=== PATIENT | female | born 1995 | race Caucasian/White ===

== ENCOUNTER 2019-01-21 20:54 | Emergency (ER) | payer MEDICAID, SELFPAY ==
[2019-01-21 20:55] VITALS: BP 156/85; PULSE 87; RESP 16; TEMP 36.7; O2SAT 100; BMI 40.4
[2019-01-21 21:01] VITALS: BP 111/71; PULSE 82; RESP 22; O2SAT 98
--- NOTE | 2019-01-21 21:27 | US_ITS ---
STUDY: SECOND AND THIRD TRIMESTER OBSTETRICAL ULTRASOUND - LIMITED REASON FOR EXAM: Female, 23 years old. Cramping PRIOR ULTRASOUND: None. TECHNIQUE: Transabdominal and Transvaginal TECHNICAL QUALITY: Adequate. FINDINGS: There is a single intrauterine fetus. The fetus is in a transverse lie with the head on the maternal right side. There is demonstrated cardiac activity with a heart rate of 144 bpm. There is a normal amniotic fluid volume. The largest amniotic fluid pocket measures 6.5 cm. Amniotic fluid index was not measured. The placenta is posterior . The cervix measures 4.2 cm in length. BIOMETRY: BPD: 3.9 cm: 17 weeks, 6 days HC: 14.6 cm: 17 weeks, 6 days AC: 12.8 cm: 18 weeks, 3 days FL: 2.5 cm: 17 weeks, 4 days Age by LMP: 17 weeks, 3 days. GUILLERMO by LMP: 06/28/2019. age by current US: 18 weeks, 0 days. GUILLERMO by current US: 06/24/2019. Estimated weight: 217 grams, +/- 32 grams, 77 percentile. Please note this is not a dedicated anatomy ultrasound. Recommend correlation with dedicated anatomy ultrasound between 18 and 20 weeks gestational age. US/OB Limited With Biometrics IMPRESSION: Single live intrauterine with a computed gestational age of 18 weeks and 0 days. Electronically Signed: Vadim Hester, at 23:29 EDT Tel , Service support ,
[2019-01-21 21:56] LABS: Absolute Lymphocyte Count 3.32 X10^3/ul (0.83-4.51); Absolute Neutrophil Count 7.2 X10^3/uL (2.0-7.7); Basophil# 0.02 X10^3/uL; Basophil% 0.2 % (0-1); Eosinophils% 0.9 % (0-5); Hematocrit 34.7 % (37-47); Hemoglobin 11.7 g/dl (12.0-15.0); Lymphocyte # 3.32 X10^3/ul (4.0); Lymphocyte % 29.2 % (19-41); Mean Corp Hgb Conc 33.7 g/gl (32-36); Mean Corpuscular Hgb 29.3 pg (27.0-32.0); Mean Platelet Vol. 11.5 fl (6.2-12.0); Monocyte# 0.71 X10^3/uL; Monocyte% 6.2 % (0-10); Neutrophil # 7.18 X10^3/uL (2.7-7.7); Neutrophil % 63.1 % (47-70); Platelet Count 231 K/mm3 (150-450); RBC Distribution Width CV 13.5 % (11.6-14.6); RBC Distribution Width SD 41.9 fl (35.1-43.9); Red Blood Count 3.99 M/mm3 (4.2-5.4); White Blood Count 11.4 K/mm3 (4.4-11.0)
[2019-01-21 21:57] LABS: POSITIVE COUNT NO; POSITIVE DIFFERENTIAL NO; POSITIVE MORPHOLOGY NO
[2019-01-21 21:59] LABS: ALB/GLOB Ratio 0.8 RATIO (0.9-2.4); AST(SGOT) 29 U/L (15-37); Alanine Aminotransfer ALT/SGPT 37 U/L (13-56); Albumin, Serum 3.2 g/dL (3.2-5.0); Alkaline Phosphatase 60 U/L (45-117); Anion Gap 6 (5-15); BUN 4 mg/dL (7-18); BUN/Creat Ratio 8.1 RATIO (10-20); Calcium,Total 9.2 mg/dL (8.5-10.1); Chloride 109 mmol/L (98-107); Creatinine, Serum 0.49 mg/dL (0.55-1.02); EST Glomerular Filtration Rate 164 mL/min (>60); Est Glom Filt Rate - Afr Amer 198 mL/min (>60); Estimated Creatinine Clearance 140.02 ml/min; Glucose 86 mg/dL (74-106); Potassium 3.5 mmol/L (3.5-5.1); Protein, Total 7.2 g/dL (6.4-8.2); Sodium Level 139 mmol/L (136-145)
--- NOTE | 2019-01-21 22:37 | ED.DCSUM_ITS ---
- ER Visit Summary Date of Service: 01/21/19 Chief Complaint: Nausea vomiting History of Present Illness: The patient is a 23 F who is approximately 18 weeks . She states that tonight she was swimming outside for about an hour. She got out of the water she felt dizzy. She went to the bathroom had nausea vomiting. After that she continued to feel dizzy and nauseous she went to the bedroom. She states that she urinated on herself but did not know she was peeing. She felt like passing out. She states now she feels fine other than my head feels heavy. G4, P2 Ab1. Patient of Dr. Garces. She smokes but does not drink any alcohol. She does note some lower abdominal cramping at the time that she was peeing. She does not know if there is any blood or leakage of fluid. Physical Examination: Afebrile vital signs are stable Gen: Well-nourished well-developed obese Head: Normocephalic atraumatic Eyes: Perrl EOMI ENT: TMs clear no rhinorrhea moist mucous membranes Neck: Supple no lymphadenopathy no JVD nontender CVS: Regular rate rhythm no murmurs normal S1-S2 Respiratory: No distress clear to auscultation bilaterally chest nontender Abdomen: Soft nontender nondistended normal bowel sounds no masses Back: Nontender Extremity: Nontender no edema Skin: Normal color no rash Neuro: alert orientated ?3 CN II-XII intact normal strength sensation reflexes gait cerebellar Psych: Normal affect normal mood Test Results: White count 11.4 hemoglobin 11.7. BMP is normal. UA negative. Ultrasound of the fetus showed a single live intrauterine with gestational age of about 18 weeks. Normal amniotic fluid and heart rate. Emergency Department Course and Treatment: Reassessment the patient feels back to herself. I suspect that she had more of a vasovagal episode. She will follo w-up with [facility] as scheduled. Return if worsening or concerns Impression: 1. Second trimester 2. Dizziness 3. Vasovagal near syncope This note was generated with [employer] software. It may contain incorrect words, spelling, and punctuation that were not noted in review of the chart prior to signing ED Disposition - Plan for ED Patient: Disposition: Home or Assisted Living Instructions: NEAR SYNCOPE, Vasovagal Referrals: Wolfgang Martinez MD [STAFF PHYSICIAN] -
[2019-01-21 23:25] LABS: Mucous, Urine 0 SEEN /hpf (<or=2+)
[2019-01-21 23:52] VITALS: BP 118/60; PULSE 75; RESP 18; O2SAT 96
[2019-01-22] LABS: Color, Urine Yellow (Yellow); Glucose, Dipstick Normal (Normal); Ketone-Dipstick 15 mg/dl (Negative); Leukocyte Esterase-Dipstick 25 /ul (Negative); Nitrite-Dipstick Negative (Negative); Occult Blood-Urine 50 /ul (Negative); Protein-Dipstick 15 mg/dl (Negative); Specific Gravity, Urine 1.025 (1.002-1.030); Urine Bilirubin Dipstick Negative (Negative); Urine Clarity Sl. Cloudy (Clear); Urine Urobilinogen Normal (Normal)
[2019-01-22 00:13] LABS: Fine Granular Cast- Urine 0-5 SEEN /lpf (0-5); Hyaline Cast 0-5 SEEN /lpf (0-5)
[2019-01-22 00:14] LABS: Amorphous Sediment 1+; Bacteria RARE /hpf (None Seen); Red Blood Cells-Urine 0-5 SEEN /hpf (0-5); Squamous Epithelial Cells - UA 5-10 SEEN /hpf (5-10); White Blood Cells 0-5 SEEN /hpf (0-5)
[2019-01-22 00:41] VITALS: BP 105/60; PULSE 67; RESP 18; O2SAT 98
== END 2019-01-22 00:41 | disposition home or self-care (01) ==
PROVIDERS: Emergency Provider Emergency Medicine; Family Provider Family Medicine; PCP Family Medicine
DX: O99.89 Other specified diseases and conditions complicating pregnancy, childbirth and the puerperium (principal); R42 Dizziness and giddiness; R55 Syncope and collapse; O99.332 Smoking (tobacco) complicating pregnancy, second trimester; F17.200 Nicotine dependence, unspecified, uncomplicated; O99.212 Obesity complicating pregnancy, second trimester; E66.9 Obesity, unspecified; Z3A.18 18 weeks gestation of pregnancy
CPT/HCPCS: 76816; 80053; 81001; 85025; 99283; A4216

== ENCOUNTER → 2019-02-13 16:12 | Outpatient (CLI) | payer MEDICAID, SELFPAY ==
[2019-01-21 20:55] VITALS: BMI 40.4
== END ==
PROVIDERS: Visit Provider Obstetrics & Gynecology
DX: O23.42 Unspecified infection of urinary tract in pregnancy, second trimester (principal); Z3A.00 Weeks of gestation of pregnancy not specified
CPT/HCPCS: 87077; 87086; 87088; 87186

== ENCOUNTER → 2019-04-19 14:49 | Outpatient (CLI) | payer MEDICAID, SELFPAY ==
[2019-04-19 15:46] LABS: Hematocrit 34.9 % (37-47); Hemoglobin 11.4 g/dL (12.0-15.0); Mean Corp Hgb Conc 32.7 g/dL (32-36); Mean Corpuscular Hgb 28.8 pg (27.0-32.0); Mean Corpuscular Volume 88.1 fL (81-99); Mean Platelet Vol. 11.2 fl (6.2-12.0); Platelet Count 286 K/mm3 (150-450); RBC Distribution Width CV 13.2 % (11.6-14.6); RBC Distribution Width SD 42.7 fl (35.1-43.9); Red Blood Count 3.96 M/mm3 (4.2-5.4); White Blood Count 14.7 K/mm3 (4.4-11.0)
[2019-04-19 16:05] LABS: Free T3 2.6 pg/mL (2.18-3.98); Glucose Challenge Gest 1H 50g 136 mg/dL (70-140); T4 Free Direct 0.84 ng/dL (0.76-1.46); Thyroid Stim Hormone (TSH) 0.95 uIU/mL (0.358-3.74)
== END ==
PROVIDERS: Visit Provider Obstetrics & Gynecology
DX: Z34.83 Encounter for supervision of other normal pregnancy, third trimester (principal)
CPT/HCPCS: 36415; 82950; 84439; 84443; 84481; 85027

== ENCOUNTER 2019-05-19 10:04 | Emergency (ER) | payer MEDICAID, SELFPAY ==
[2019-05-19] VITALS (9 sets, daily range): BP systolic 118–125; BP diastolic 77–80; PULSE 16–111; RESP 16–17; TEMP 36.6–36.7; O2SAT 96; BMI 40.1
--- NOTE | 2019-05-19 10:27 | ED.VIS.GEN ---
History of Present Illness Chief Complaint: Suicidal Narrative: 23-year-old G3, P2 at 34 weeks presents with suicidal ideation. Her mother in early April suddenly from a car accident. She has been very depressed about this and lost her mother's help with her children. She has started to feel suicidal thoughts and was considering jumping into moving traffic. She denies previous suicide attempt. She denies any drug or alcohol use. Current severity is moderate. Past Medical History - Allergies and Home Meds Allergies/Adverse Reactions: Allergies Penicillins Allergy (Verified 05/19/19 10:06) Angioedema Primary Care Physician: Care Physician,No Primary [Primary Care Provider] - Prior records reviewed: Yes Smoking Status: Current every day smoker Review of Systems General: Denies: Chills, Fever, Sweats Eyes: Denies: Visual changes - bilaterally, Diplopia ENT: Denies: Rhinorrhea, Sore throat Cardiovascular: Denies: Chest pain, Palpitations Respiratory: Denies: Dyspnea, Cough, Dyspnea on exertion Gastrointestinal: Denies: Abdominal pain, Nausea, Vomiting, Diarrhea, Melena, Hematochezia Genitourinary: Denies: Dysuria, Hematuria, Frequency Musculoskeletal: Denies: Back pain, Extremity Pain Skin: Denies: Rash, Wounds Neurological: Denies: Headache, Weakness, Numbness Psych: Reports: Depression, Anxiety, Suicidal thoughts, Suicidal ideations Physical Exam Vital Signs/Narrative: Vital Signs Temp Pulse Resp BP Pulse Ox 05/19/19 10:06 98.0 F 111 H 17 118/80 96 General: Well nourished, Well developed, No Acute Distress Head: Normocephalic, Atraumatic Eyes: Perrl, EOMI ENT: Moist mucous membranes, No rhinorrhea Neck: Supple, Nontender Cardiovascular: Regular rate, Regular rhythm, No murmurs Respiratory: No distress, CTA bilaterally, Chest nontender Abdomen: Soft, Nontender, Nondistended, Normal bowel sounds Back: Nontender, Normal Inspection Extremities: Nontender, No edema Skin: Normal color, No rash Neurological: Alert, Oriented x3, Cranial nerves II-XII grossly intact, Normal Strength, Normal Sensation Psychological: Depressed, Tearful Diagnostic/Tx/Re-eval - Medical Decision Making Medical clearance labs are within normal limits. She has been medically cleared for psychiatric assessment. She was evaluated here and felt to meet criteria for inpatient psychiatric treatment. We are currently waiting for acceptance. ED Disposition - Plan for ED Patient: Disposition: Acute Care Hospital - Other Diagnosis: Suicidal ideation, Depression, Third trimester Instructions: Depression Referrals: Care Physician,No Primary [Primary Care Provider] -
--- NOTE | 2019-05-19 10:52 | CM.ED ---
Social Work Consult: Suicidal Informant: Dr. Ferreira Chief Complaint: Patient presenting to the emergency room due to suicidal thoughts. Patient was walking along the road without any shoes, stating to be contemplating stepping out in front of a car. Marital/Social History: Patient is 34 weeks with third child. to Yfn Moralesnguyễn for the past three years. Patient two other children, Man age 8 and Brylond age 5. Man and Brylond jeffries not share paternity with current but Yfn has adopted both [place] and Brylond. Living Situation: Lives with spouse, in-laws, sister, Betty and two children. Planning to go stay with patient father for the next few weeks to be with family. Support/Resources: Family is supportive. History: None Education and Employment History: 10th grade education. Reporting no learning or comprehension difficulties. Mental Health Treatment/History: Denies any mental health history. Stating to have had depression with first child, Man 8 years ago and did have counseling for this. Denies every taking any medication. Abuse Issues: Denies Substance Abuse: Denies Mental Status Exam: A&Ox3 Appearance/General Behavior: Disheveled. Mood/Affect: Depressed. Did make eye contact with this social research assistant during assessment. Was tearful. Communication Pattern: Responds to questions. Thought Process: Appears to have some disassociation. When speaking with patient spouse, Yfn. Yfn stating to have gotten in an argument with patient this morning and then patient walked out of the home. When asking patient about argument patient appearing to not remember/not be aware that an argument occurred stating it was nothing. Risk to Self/Others: Patient stating to have had suicidal thoughts for the past week. Patient denies any plan to hurt self other then today when patient started thinking about walking out in front of a car. Patient reporting that this is the first time patient has told another person about patient suicidal thoughts. Patient denies any suicidal ideation/plan history outside of this past week. Triggers/Stressors: Patient mother from a MVA on 04/26/19. Patient currently 34 weeks . Assessment: Met with patient in room. Introduced self as well as social research assistant role. Patient agreeable to meet with this social research assistant. Patient stating that patient family is not aware that patient is currently in the emergency department. Patient agreeable to this social research assistant contacting patient spouse, Yfn. Patient stating to be sleeping and eating okay. Patient stating to have feelings of feeling down and depressed since patient mother passed. Patient stating to have been thinking about children and unborn child and this is what stopped patient from stepping out in front of a vehicle while walking along the road. Patient stating to be looking forward to have another child. Patient stating I do not want to leave my children motherless. Patient also presenting with disassociation when speaking about family and suicidal thoughts. Patient stating that when patient was walking along the road patient did not feel safe to self and kept thinking I need to go to the hospital. A wilman rodriges saw patient walking along the road and stopped to ask what was going on. Patient did not initiate getting help. Patient did tell the [facility] about thoughts and this is what brought patient to the ED. Broaching topic of outpatient counseling versus inpatient psychiatric placement for patient. Patient is agreeable to both options. Telephone call to patient spouse, Yfn. This is when this social research assistant was informed about argument this morning. Yfn planning to come to hospital. Risk Factors: Suicidal thoughts for the past week, walking along the road and contemplating suicide, has not informed family/friends about suicidal thoughts over the past week, patient mother passing away unexpectedly, patient 34 weeks with increase in emotions, had an argument with patient spouse this morning. Safety Factors: Patient has supportive family, has two children and one unborn child. Collaborating with Dr. Ferreira. Plan to initiated psychiatric placement for patient due to high risk factors and patient presenting as depressed with high volatility. Concerned with dissociation behaviors that appear to be present. PLAN: Will continue to follow for placement. Did consult with FELTON Perez MSW on case. Hang FIGUEROA, DARRICK
[2019-05-19 11:25] LABS: Absolute Lymphocyte Count 4.14 X10^3/uL (0.83-4.51); Absolute Neutrophil Count 13.5 X10^3/uL (2.0-7.7); Basophil# 0.07 X10^3/uL; Basophil% 0.4 % (0-1); Eosinophil# 0.16 X10^3/uL; Eosinophils% 0.8 % (0-5); Hematocrit 36.8 % (37-47); Lymphocyte # 4.14 X10^3/ul (4.0); Lymphocyte % 21.3 % (19-41); Mean Corp Hgb Conc 32.6 g/dL (32-36); Mean Corpuscular Hgb 28.4 pg (27.0-32.0); Mean Corpuscular Volume 87.2 fL (81-99); Mean Platelet Vol. 11.4 fl (6.2-12.0); Monocyte# 1.26 X10^3/uL; Monocyte% 6.5 % (0-10); NRBC Flagged by Analyzer 0 % (0-5); Neutrophil # 13.54 X10^3/uL (2.7-7.7); Neutrophil % 69.8 % (47-70); Platelet Count 319 K/mm3 (150-450); RBC Distribution Width CV 13.4 % (11.6-14.6); RBC Distribution Width SD 42.5 fl (35.1-43.9); Red Blood Count 4.22 M/mm3 (4.2-5.4); White Blood Count 19.4 K/mm3 (4.4-11.0)
[2019-05-19 11:34] LABS: Amphetamine Urine VISTA NEGATIVE (<1000 ng/mL); Barbiturate Urine VISTA NEGATIVE (< 200 ng/mL); Benzodiazepine Urine VISTA NEGATIVE (< 200 ng/mL); Cocaine Urine VISTA NEGATIVE (< 300 ng/mL); Ecstacy Urine VISTA NEGATIVE (< 500 ng/mL); Methadone Urine VISTA NEGATIVE (< 300 ng/mL); PCP Urine VISTA NEGATIVE (< 25 ng/mL); THC Urine VISTA NEGATIVE (< 50 ng/mL); Vista UDS pH Range 5
[2019-05-19 11:39] LABS: Anion Gap 8 (5-15); BUN 5 mg/dL (7-18); BUN/Creat Ratio 11.7 RATIO (10-20); Calcium,Total 8.9 mg/dL (8.5-10.1); Chloride 106 mmol/L (98-107); Creatinine, Serum 0.43 mg/dL (0.55-1.02); EST Glomerular Filtration Rate 192 mL/min (>60); Est Glom Filt Rate - Afr Amer 233 mL/min (>60); Estimated Creatinine Clearance 159.56 ml/min; Glucose 84 mg/dL (74-106); Potassium 3.7 mmol/L (3.5-5.1); Sodium Level 135 mmol/L (136-145)
[2019-05-19 11:48] LABS: Alcohol, Blood (Medical)-Serum < 3.0 mg/dL
--- NOTE | 2019-05-19 12:42 | CM.ED ---
Social Work Telephone call to [facility]. Voicemail left asking for return phone call. Hang FIGUEROA, DARRICK
--- NOTE | 2019-05-19 13:53 | CM.ED ---
Social Work Telephone call made again to [facility], they do not have any open beds. Telephone call to [facility], they do not accept patient insurance Telephone call to [facility], they are not able to accommodate a patient that is 34 weeks . [facility] and may not be able to accept due to 34 weeks . Would need to call the access center to make referral: [phone]. [facility] recommending for this social service manager to contact [facility] as they have a program to assist patients that are . [facility] and they are able to review case. Referral faxed. Will continue to follow. Hang FIGUEROA, DARRICK
--- NOTE | 2019-05-19 15:20 | CM.ED ---
Social Work Telephone call to [facility], referral has been received and it is being reviewed. Hang FIGUEROA, DARRICK
--- NOTE | 2019-05-19 16:27 | CM.ED ---
Social Work Telephone call from [facility]. Patient has been accepted. Waiting bed assignment. They will call this social worker psychiatric will admitting information. Updated patient and medical team. Hang FIGUEROA, DARRICK
--- NOTE | 2019-05-19 18:06 | CM.ED ---
Social Work Telephone to [facility]. They are still awaiting bed assignment. There is an open bed. Per [facility] they do not work that fast. Hang FIGUEROA, DARRICK
--- NOTE | 2019-05-19 19:22 | CM.ED ---
Social Work Telephone call from [facility]. Bed: 6B. Admitting: Dr. Patrick. Nurse to nurse report: [phone]. Updated patient and medical team. Hang FIGUEROA, DARRICK
--- NOTE | 2019-05-19 20:27 | ED.RN ---
called report to [facility] at [facility]. will notify them of time of transport.
[2019-05-20 00:22] VITALS: BP 95/46; PULSE 70; RESP 16; TEMP 37.1; O2SAT 97
[2019-05-20] MEDS: Mag Hydrox/Al Hydrox/Simeth 30 ML UDC PO (03:39)
[2019-05-20 03:44] VITALS: BP 129/75; PULSE 62; RESP 18; TEMP 36.8; O2SAT 98
--- NOTE | 2019-05-20 07:37 | NURSING ---
CALLED [facility], ETA IS 1 TO 1.5 HRS
[2019-05-20 08:13] VITALS: BP 105/58; PULSE 86; RESP 16; O2SAT 96
== END 2019-05-20 08:57 ==
PROVIDERS: Emergency Provider Emergency Medicine
DX: O99.343 Other mental disorders complicating pregnancy, third trimester (principal); R45.851 Suicidal ideations; F32.9 Major depressive disorder, single episode, unspecified; O99.333 Smoking (tobacco) complicating pregnancy, third trimester; F17.200 Nicotine dependence, unspecified, uncomplicated; Z3A.34 34 weeks gestation of pregnancy
CPT/HCPCS: 36415; 80048; 80307; 80320; 85025; 99285; G0480

== ENCOUNTER → 2019-06-01 14:49 | Outpatient (CLI) | payer MEDICAID, SELFPAY ==
[2019-05-19 10:06] VITALS: BMI 40.1
== END ==
PROVIDERS: Visit Provider Obstetrics & Gynecology
DX: Z36.85 Encounter for antenatal screening for Streptococcus B (principal)
CPT/HCPCS: 87077; 87081; 87186

== ENCOUNTER 2019-06-23 17:40 | Outpatient (CLI) | payer MEDICAID, SELFPAY ==
[2019-05-19 10:06] VITALS: BMI 40.1
[2019-06-23 18:09] VITALS: BMI 41.1
[2019-06-23 18:40] LABS: Hematocrit 34.4 % (37-47); Hemoglobin 11.2 g/dL (12.0-15.0); Mean Corp Hgb Conc 32.6 g/dL (32-36); Mean Corpuscular Hgb 27.9 pg (27.0-32.0); Mean Corpuscular Volume 85.6 fL (81-99); Mean Platelet Vol. 11.4 fl (6.2-12.0); Platelet Count 331 K/mm3 (150-450); RBC Distribution Width CV 15.7 % (11.6-14.6); RBC Distribution Width SD 47.7 fl (35.1-43.9); Red Blood Count 4.02 M/mm3 (4.2-5.4); White Blood Count 14.3 K/mm3 (4.4-11.0)
[2019-06-23 18:49] LABS: Prothrombin Time (Protime)PT. 12.7 SECONDS (11.7-14.9)
[2019-06-23 19:14] LABS: Protein, Urine (Random) 26.4 mg/dL (<11.9); Protein:Creat Ratio 153 mg/g CRE (0-200)
[2019-06-23 19:44] LABS: AST(SGOT) 22 U/L (15-37); Alanine Aminotransfer ALT/SGPT 22 U/L (13-56); Creatinine, Serum 0.41 mg/dL (0.55-1.02); EST Glomerular Filtration Rate 200 mL/min (>60); Est Glom Filt Rate - Afr Amer 242 mL/min (>60); Estimated Creatinine Clearance 167.34 ml/min; Uric Acid 4.1 mg/dL (2.6-6.0)
[2019-06-23 20:38] LABS: Bacteria 0 SEEN /hpf (None Seen); Mucous, Urine 0 SEEN /hpf (<or=2+); Red Blood Cells-Urine 0 SEEN /hpf (0-5)
[2019-06-23 20:43] LABS: Color, Urine Yellow (Yellow); Glucose, Dipstick Normal (Normal); Ketone-Dipstick 5 mg/dl (Negative); Leukocyte Esterase-Dipstick 500 /ul (Negative); Nitrite-Dipstick Negative (Negative); Occult Blood-Urine 50 /ul (Negative); Protein-Dipstick 15 mg/dl (Negative); Specific Gravity, Urine 1.025 (1.002-1.030); Urine Clarity Cloudy (Clear); Urine Urobilinogen 4 mg/dl (Normal)
[2019-06-23 20:47] LABS: Urine Bilirubin Dipstick 1 mg/dL (Negative)
[2019-06-23 20:55] LABS: Amorphous Sediment 4+
[2019-06-23 20:57] LABS: Calcium Oxalate Crystals Ur RARE /hpf (<or=2+)
[2019-06-23 21:00] LABS: White Blood Cells 10-25 SEEN /hpf (0-5)
[2019-06-23 21:02] LABS: Squamous Epithelial Cells - UA 10-25 SEEN /hpf (5-10)
--- NOTE | 2019-06-23 22:41 | OB.TRI.NOTE ---
History of Present Illness Date of Service: 06/23/19 Was patient seen by the physician?: No Reason For Visit: R/O Labor, R/O preeclampsia Date of Service: 06/23/19 Final GUILLERMO: 06/28/19 Final GUILLERMO Source: US <20 weeks Gestational age: 39 Weeks and 2 Days History of Present Illness: Pt presenting to unit c/o contractions; also reports BURGOS and nausea, occasional stars in front of eyes; denies epigastric pain Allergies Penicillins Allergy (Verified 05/19/19 10:06) Angioedema Laboratory Studies: Laboratory Tests 06/23/19 06/23/19 06/23/19 Range/Units 18:55 18:55 18:15 WBC (4.4-11.0) K/mm3 RBC (4.2-5.4) M/mm3 Hgb (12.0-15.0) g/dL Hct (37-47) % MCV (81-99) fL MCH (27.0-32.0) pg MCHC (32-36) g/dL RDW Std Deviation (35.1-43.9) fl RDW Coeff of Liane (11.6-14.6) % Plt Count (150-450) K/mm3 MPV (6.2-12.0) fl PT (11.7-14.9) SECONDS INR APTT (24.1-36.2) Seconds Creatinine 0.41 L (0.55-1.02) mg/dL Estim Creat Clear Calc 167.34 ml/min Est GFR (MDRD) Af Amer 242 (>60) mL/min Est GFR (MDRD) Non-Af 200 (>60) mL/min Uric Acid 4.1 (2.6-6.0) mg/dL AST 22 (15-37) U/L ALT 22 (13-56) U/L Urine Color Yellow (Yellow) Urine Clarity Cloudy (Clear) Urine pH 5.0 (5.0 - 8.0) Ur Specific [place] 1.025 (1.002-1.030) Urine Protein 15 H (Negative) mg/dl Urine Glucose (UA) Normal (Normal) mg/dl Urine Ketones 5 H (Negative) mg/dl Urine Occult Blood 50 H (Negative) /ul Urine Nitrite Negative (Negative) Urine Bilirubin 1 H (Negative) mg/dL Urine Urobilinogen 4 H (Normal) mg/dl Ur Leukocyte Esterase 500 H (Negative) /ul Urine RBC 0 SEEN (0-5) /hpf Urine WBC 10-25 SEEN (0-5) /hpf Ur Squamous Epith Cells 10-25 SEEN (5-10) /hpf Calcium Oxalate Crystal RARE (<or=2+) /hpf Amorphous Sediment 4+ Urine Bacteria 0 SEEN (None Seen) /hpf Urine Mucus 0 SEEN (<or=2+) /hpf U Random Total Protein 26.4 H (<11.9) mg/dL Urine Creatinine 173.00 (NO RANGE EST.) mg/dL Protein/Creatinin Ratio 153 (0-200) mg/g CRE 06/23/19 06/23/19 Range/Units 18:15 18:15 WBC 14.3 H (4.4-11.0) K/mm3 RBC 4.02 L (4.2-5.4) M/mm3 Hgb 11.2 L (12.0-15.0) g/dL Hct 34.4 L (37-47) % MCV 85.6 (81-99) fL MCH 27.9 (27.0-32.0) pg MCHC 32.6 (32-36) g/dL RDW Std Deviation 47.7 H (35.1-43.9) fl RDW Coeff of Liane 15.7 H (11.6-14.6) % Plt Count 331 (150-450) K/mm3 MPV 11.4 (6.2-12.0) fl PT 12.7 (11.7-14.9) SECONDS INR 1.0 APTT 27.0 (24.1-36.2) Seconds Creatinine (0.55-1.02) mg/dL Estim Creat Clear Calc ml/min Est GFR (MDRD) Af Amer (>60) mL/min Est GFR (MDRD) Non-Af (>60) mL/min Uric Acid (2.6-6.0) mg/dL AST (15-37) U/L ALT (13-56) U/L Urine Color (Yellow) Urine Clarity (Clear) Urine pH (5.0 - 8.0) Ur Specific [place] (1.002-1.030) Urine Protein (Negative) mg/dl Urine Glucose (UA) (Normal) mg/dl Urine Ketones (Negative) mg/dl Urine Occult Blood (Negative) /ul Urine Nitrite (Negative) Urine Bilirubin (Negative) mg/dL Urine Urobilinogen (Normal) mg/dl Ur Leukocyte Esterase (Negative) /ul Urine RBC (0-5) /hpf Urine WBC (0-5) /hpf Ur Squamous Epith Cells (5-10) /hpf Calcium Oxalate Crystal (<or=2+) /hpf Amorphous Sediment Urine Bacteria (None Seen) /hpf Urine Mucus (<or=2+) /hpf U Random Total Protein (<11.9) mg/dL Urine Creatinine (NO RANGE EST.) mg/dL Protein/Creatinin Ratio (0-200) mg/g CRE Physical Exam Cervix Dilation (cm): 2 - Per RN exam Station: -3 Effacement (%): 40 NST - FHR Rate Baby A Baseline: 120 baseline Variability:: Moderate Accelerations:: 15 x 15 Decelerations:: None NST Reactive:: Yes, Appropriate for gestational age FHR Category:: Category I Uterine Activity:: Occasional Impression/Plan Impression: 23yo at 39w2d gestation by 6w3d US R/O labor, no cervical bladder changer 2+ hours R/O Preeclampsia. labs WNL, s/s resolved Plan: Discharge home with labor precautions, preeclampsia warning signs, FM counts, increased rest and fluids
== END 2019-06-23 22:00 | disposition home or self-care (01) ==
LOC: WPOUT 18:07 → WP 18:09
PROVIDERS: Referring Provider Advanced Practice Midwife; Visit Provider Advanced Practice Midwife
DX: O47.1 False labor at or after 37 completed weeks of gestation (principal); O99.89 Other specified diseases and conditions complicating pregnancy, childbirth and the puerperium; R51 Headache; Z3A.39 39 weeks gestation of pregnancy
CPT/HCPCS: 36415; 59025; 59050; 81001; 82565; 82570; 84156; 84450; 84460; 84550; 85027; 85610; 85730; 99218; G0378

== ENCOUNTER 2019-06-29 09:40 | Inpatient (IN) | payer MEDICAID, SELFPAY ==
--- NOTE | 2019-06-28 21:45 | HP.PCM_ITS ---
History and Physical Date of Admission: 06/29/19 ACOG ANTEPARTUM RECORD - HISTORY AND PHYSICAL (06/28/2019) Name: KINGSTON PINA History of This : This is a 23-year-old patient who presents for a primary section for breech presentation. She also desires permanent sterilization. care has been remarkable for a prior with shoulder dystocia. The patient is also a smoker and has been advised to quit. She was found to have her baby in breech presentation in the office yesterday. OB Physician: LAMBERTO Jolon's Physician: UNDECIDED ...................................................................... : 1995 Age: 23 Address: [address] [place] [address] Phone: ([phone] ([phone] Insurance Carrier: [employer] [id number] Emergency Contact: FROY PINA [phone] ...................................................................... Final GUILLERMO: 06/28/19 By Ultrasound: PARITY: (G-Total Pregnancies P-Fullterm,Premature,Induced AB,Spont AB, Ectopics, Multiple,Living) GUILLERMO CONFIRMATION: By LMP: 08/31/18 By First Ultrasound Exam: 06/28/19 Final GUILLERMO: 06/28/19 BLOOD TYPE: O POSITIVE AFP: 1 HR PG: GBS: Original Ordering Provider: Erlin Martinez Comments: VAGINAL/RECTAL LEO Culture ORGANISM 1: Streptococcus agalactiae (B) Amount Growth Growth Rublla titer (>10 immune)--Nov 07 2018: NON-IMMUNE Hepatatis B ekaterina AG-- Nov 07 2018: NEGATIVE OB PROBLEM LIST: 1st child: 9 lbs 5 oz, shoulder dystocia ALLERGIC to PCN's!!! 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 (counseling), less severe pp dep after 2nd child SMOKER 5 cigs/d ATQ Thyroid disease/thyroid nodules Z: Pt ok w/CNM or MD for PNV or delivery ALLERGIES: Penicillins Anaphylaxis MEDICATIONS: azithromycin 250 mg tablet 2 po today then 1 po daily Macrobid 100 mg capsule 1 PO BID x 7 days Plus DHA 27 mg iron-1 mg-312 mg-250 mg oral pack One tablet QD SOCIAL HISTORY: Smoking - Advised to quit Alcohol Use - denies drinking Diet - high fat diet Lifestyle - moderate stress lifestyle and Exercise - none 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 Job Description - 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 Drug Use - denies use of street drugs Sexual Activity - Residence - Living with in-laws Place of - [place], [place] Spouse-Sig Other Name - Froy Pina Spouse-Sig Other Occupation - looking for work Spouse-Sig Other Phone No - [phone] Children Name(s) - Pete Conway PRIOR DELIVERY HISTORY DEL DATE GEST LAB WT LB WT OZ TYPE ANES LABOR TX 01 Apr 12 8 0 0 0 Sab Epidural No 13 Mar 14 39 5 7 5 Vag Local No December 03 39 6 9 5 Vag Local No ANTEPARTUM FLOW CHART VISIT GE RTC FU F F MT U U DATE WK MD WKS HT PN HR M SS BP ED WT MT GL D EF ST __ ____ ___ __ __ ___ __ __ __ ___ __ __ __ ___ __ 04 Jun JMW 1 38 ? + + 122/80 sl 226 tr - S May JMW 1 38 V + + 102/80 0 222 tr - 2 50 -2 May CH 1 39 V + + 110/70 0 225 - - 13 May JMW 1 39 + + 138/86 tr 220 tr - 07 May JMW 1 36 V + + 134/74 tr 220 tr - 2 50 -2 24 Apr JMW 2 34 + + 120/76 sl 221 1+ - 10 Apr 32 KW 2 32 - + 100/80 0 218 tr - Apr 24 JMW 2 31 + + 120/82 sl 220 tr 1+ 05 Apr 21 JMW 2 27 + + 136/74 tr 219 tr - Feb 11 JMW 4 20 + + 90/70 sl 217 tr - 10 Jan 06 JMW 4 14 + + 104/60 sl 223 tr - December 02 ELB 4 - - U+ US 116/78 0 222 tr - ANTEPARTUM NOTE(S): Jun 28 2019: Ctxs-occas, Good FM, Ck US, for breech Jun 21 2019: feeling well. Cervix check. Jun 14 2019: feeling well. Jun 07 2019: Ctxs-occas, FM Noted Jun 01 2019: Ctxs-occas, Abcess Teeth x2, Good FM, Oct 24 2019: Good FM,Feeling Well May 04 2019: feeling well. Apr 19 2019: feeling well. Rash on abdomen. Glucola drawn today. Mar 30 2019: Heartburn Daily,Good FM, moving to [place] Feb 13 2019: see note, US OK Jan 02 2019: see prog note Dec 05 2018: Sono, NOB and PNV Today COMPREHENSIVE ANTEPARTUM NOTE(S): Jun 14 2019: (m,m,m*) Reports +FM, FHR 142. Still reporting irregular UC. Will call for regular UC, ROM or decreased FM. Understands GBS+ so will need to come in when in labor for antibiotic Tx. Wishes BTL. Will discuss with JW at next PNV. - CH Jun 07 2019: H taken to OB. tkg Jun 07 2019: Feeling well; reports active FM, although not as much lately as she is accustomed to; states at times she feels sharp, stabbing pain at the top of vagina, denies discharge; reports occasional BH UCs, denies VB, LOF; reassurance provided re: vaginal pain, likely nerve stimulation from head; discussed warning signs, s/s Labor, when to call/come in; pt OK w/CNM or MD delivery, has had a with a bedspread cutter hand with her oldest child; RTO 1 week for PNV - KVW Jun 05 2019: GBS positive. EB May 05 2019: 05/04/2019 - Feeling well; reports active FM; denies UCs, VB, LOF; discussed warning signs, s/s PTL; RTO 2 weeks for PNV - KVW Mar 30 2019: Kingston presents here today for PNV and was given her Glucola/Instructions for next PNV in 1-2 weeks prior to moving to [place] on 04/14. Reports having daily heartburn and Tums ineffective. Suggested trying daily Zantac OTC or Pepcid OTC. EARL Feb 13 2019: Kingston is being seen for PNV. Urine long dip shows moderate leuks, .2 urobili, 1+ protein, pH 6.0, Blood ++, specific 1.025. Pt does complain of burning with urination. AM Jan 02 2019: Kingston is here today for her visit. Patient states that starting Wednesday she has been passing occasional blood clots with urination. She states that is the only time she notes the bleeding. Patient states that she is also have rt and lt sided pain/discomfort. Long dip of urine done in office leuk, nitrites, urobilinogen- neg, protein-trace, pH-5, blood- large, sp gravity-1025, ketones, bilirubin and glucose-neg. Patient also states that she has been having an increase in migraines, and vision changes with quick movements. Advised patient that she has a lower blood pressure and should make changes in position slowly patient is agreeable. Patient takes Tylenol for the migraines and this will help to take the edge off. jlb Dec 05 2018: Kingston is here for her NOB transfer visit at 10 w 5 d, she is a A1 with an GUILLERMO of 06/28/2019. US completed prior to NOB visit, and she will have a visit following same. labs drawn by her previous care provider. , Froy, and his mother, accompany Kingston today. This is Froy's first child, he is looking into adopting Kingston's two sons from a previous relationship. They recently moved to the area, and are currently residing, along with Kingston's sons at Froy's mother's house. Office practice patterns reviewed, and office ed materials provided, including a copy of What to Expect.... Delivery at [facility] without an epidural is planned, and she will breastfeed. She states that she nursed her sons about two weeks each. She states that she plans to enroll in WIC (Proof of provided today) and will take classes that are provided through [place]. Encouarged a scheduled tour of [facility], and discussed that [facility] also has a Sibling class that her sons may enjoy. Past history updated, she had shoulder dystocia with her first son who weighed 9 lbs 5 oz, and Kingston states that she almost while I was giving ; she is not sure what happened, as she was 15 yrs old, and this information came from her mother; she states that she had to stay in the hospital for three days after this baby was born. She states that she had diet controlled GDM with her second child. Past history updated. 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 Denies depression, or thoughts of harming herself or others at this time. Kingston smokes, she states that she would like to quit entirely, encouraged to do so. She denies use of drugs or ETOH. She takes an OTC chewable vitamin containing DHA and tolerates this well. She notes some nausea, and occasional vomiting. Reviewed measures that may help minimize nausea, including small frequent meals with protein included throughout the day, adequate water hydration of at least one gallon per 24 hrs, Vitamin B6 50 mg twice a day, and Unisom at bedtime. Genetic Screening form completed; Kingston has a brother born with cleft lip and plate, Froy has a sister with MMI. MSAFP and CF testing declined, consent signed as such. Emergencies/danger signs to report, round ligament pain, reporting s/s of a UTI, and common OTC medications approved/not approved for use during reviewed. Encouarged more well balanced diet, limiting white sugars/flours/processed food, adequate water intake, caloric needs, recommended limiting weight gain to 10-15 lbs,, limiting empty calories, and limiting caffeine to one cup a day. Printed guide for food safety during provided with review. Encouraged regular physical activity, such as walking for 30 minutes, 5 x/week. Reviewed lifting restrictions and Kegel exercises. Kingston states that she understands all information provided during nearly 90 minute NOB visit, and that she has no questions following same. AW REVIEW OF SYSTEMS: GENERAL - Denies fever, or chills SKIN - Denies rash, new skin lesions, or change in moles EYES - Denies blurred vision, or change in visual acuity EARS - Denies ear pain, or difficulty hearing NOSE - Denies nasal congestion, discharge, or bleeding MOUTH - Denies sore throat, or difficulty swallowing NECK - Denies pain or swelling RESPIRATORY - Denies shortness of breath, cough, wheezing CARDIOVASCULAR - Denies palpitations, chest pain, orthopnea, PND, peripheral edema, syncope or claudication GASTROINTESTINAL - Denies nausea, vomiting, diarrhea, constipation, Denies abdominal pain, melena and or bright red blood GENITOURINARY - Denies dysuria, frequency of urination, urgency, or hesitancy MUSCULOSKELETAL - Denies joint or muscle pain, or back pain NEUROLOGICAL - Denies localized numbness, weakness, or tingling PSYCHIATRIC - Denies depression, anxiety, substance abuse or suicide attempts ENDOCRINE - Denies heat or cold intolerance, weight loss or gain, increasing thirst HEMATO-IMMUNOLOGIC - Denies easy bruising, bleeding, oral ulcerations or recurrent infections GENETICS SCREENING: Age 35+ years: No Thalassemia: No Neural Tube Defect: No Down Syndrome: No JJ-SACHS: No Sickle Cell Disease: No Hemophilia: No Musc. 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 Total Pregnancies............ 4 2. Full Term Pregnancies........ 2 3. Premature.................... 0 4. Abortions - Induced.......... 0 5. Abortions - Spontaneous...... 1 6. Ectopics..................... 0 7. Multiple Births.............. 0 8. Living Children.............. 2 PAST #1: Date of :.................. 12/09/10 Gestation Weeks:................ 39 Length of labor(hours):......... 6 Sex:............................ M Weight-lbs:............... 9 Weight-oz:................ 5 Type of Delivery:............... Vag Type of Anesthesia:............. Local Place of Delivery:.............. [place] Treatment of Labor?:.... No Comment: SHOULDER DYSTOCIA PAST #2: Date of :.................. 04/07/14 Gestation Weeks:................ 39 Length of labor(hours):......... 5 Sex:............................ M Weight-lbs:............... 7 Weight-oz:................ 5 Type of Delivery:............... Vag Type of Anesthesia:............. Local Place of Delivery:.............. [place] Treatment of Labor?:.... No Comment: GDM PAST #3: Date of :.................. 04/25/12 Gestation Weeks:................ 8 Length of labor(hours):......... 0 Sex:............................ Weight-lbs:............... 0 Weight-oz:................ 0 Type of Delivery:............... Sab Type of Anesthesia:............. Epidural Place of Delivery:.............. [place] Treatment of Labor?:.... No Comment: DATE APPROX, D+C PHYSICAL EXAMINATION General Appearence: 23 yo female in no acute distress Vital Signs: AF, VSS Heart: RRR without rubs or gallops Lungs: CTA x 2 Breasts: deferred Abdomen: gravid Pelvis: Cervix: 1 Presentation: breech Station: hi Fetus: Size: AGA Movement: present Heart: present Labs for : KINGSTON PINA since 10/01/2018 ORDER DATEIN DESCRIPTION VALUE UNITS RANGE A+ COMMENT URINALYSIS, COMPLETE 06/23/19 NOTE Original Ordering Provider: EMILY Meyer COLOR Yellow Yellow CLARITY Cloudy Clear GLUCOSE, UR Normal mg/dl Normal BILIRUBIN URINE 1 mg/dL Negative H COLOR OF URINE MAY AFFECT DIPSTICK RESULTS. KETONE UR 5 mg/dl Negative H SP.GR. DIPSTX 1.025 1.002-1.030 PH UR 5.0 5.0 - 8.0 PROT DIPSTX 15 mg/dl Negative H UROBILI 4 mg/dl Normal H NITRITE UR Negative Negative OCCULT BLOOD-UR 50 /ul Negative H LEUK ESTERASE 500 /ul Negative H WBC 10-25 SEEN /hpf 0-5 RBC-UA 0 SEEN /hpf 0-5 SQUAM EPI 10-25 SEEN /hpf 5-10 BACTERIA 0 SEEN /hpf None Seen MUCUS, URINE 0 SEEN /hpf <OR=2+ CA OX CRYSTAL RARE /hpf <OR=2+ AMORPHOUS 4+ Reviewed by ERLIN PROTEIN+CREATININE RATIO,URINE 06/23/19 NOTE Original Ordering Provider: EMILY ZuritaMichellegeo Meyer UR CREAT 173.00 mg/dL NO RANGE EST. PROTEIN,UR.RAN. 26.4 mg/dL <11.9 H PROT:CRE RATIO 153 mg/g CRE 0-200 Reviewed by ELRIN ALANINE AMINOTRANSFERAS (SGPT) 06/23/19 NOTE Original Ordering Provider: EMILY Michelle Mitch ALT 22 U/L 13-56 Reviewed by ERLIN AST(SGOT) 06/23/19 NOTE Original Ordering Provider: EMILY Michelle Mitch AST 22 U/L 15-37 Reviewed by ERLIN URIC ACID 06/23/19 NOTE Original Ordering Provider: EMILY Meyer URIC 4.1 mg/dL 2.6-6.0 w The drugs N-Acetylcysteine and Metamizole may falsely depress this assay. Reviewed by ERLIN SERUM CREATININE AND GFR 06/23/19 NOTE Original Ordering Provider: EMILY Meyer CREAT,SERUM 0.41 mg/dL 0.55-1.02 L The validity of the calculated GFR AND GFRAA in patients over 70 years has not been determined. Clinical correlation is essential. EST GFR 200 mL/min >60 Non- GFR Calc EST GFR - AA 242 mL/min >60 GFR Calc ESTIMATED CRCL 167.34 ml/min Reviewed by ERLIN PARTIAL THROMBOPLAST TIME 06/23/19 NOTE Original Ordering Provider: EMILY Meyer PTT 27.0 Seconds 24.1-36.2 Reviewed by ERLIN PROTHROMBIN TIME W/INR 06/23/19 NOTE Original Ordering Provider: EMIYL Meyer PROTIME 12.7 SECONDS 11.7-14.9 INR 1.0 w Reviewed by ERLIN CBC-COMPLETE BLOOD CNT NO DIFF 06/23/19 NOTE Original Ordering Provider: EMILY Meyer WBC 14.3 K/mm3 4.4-11.0 H RBC 4.02 M/mm3 4.2-5.4 L HGB 11.2 g/dL 12.0-15.0 L HCT 34.4 % 37-47 L MCV 85.6 fL 81-99 MCH 27.9 pg 27.0-32.0 MCHC 32.6 g/dL 32-36 RDW CV 15.7 % 11.6-14.6 H RDW SD 47.7 fl 35.1-43.9 H PLT 331 K/mm3 150-450 MPV 11.4 fl 6.2-12.0 Reviewed by ERLIN CULTURE, GROUP B STREPTOCOCCUS 06/01/19 NOTE Original Ordering Provider: Erlin Martinez Comments: VAGINAL/RECTAL LEO Culture ORGANISM 1: Streptococcus agalactiae (B) Amount Growth Growth Streptococcus agalactiae (B): REACTION Ampicillin $ <=0.25 S Benzylpenicillin NF <=0.06 S Ceftriaxone $ <=0.12 S Clindamycin $$ >=1 R Inducable Clindamycin Resistan NEG Linezolid $$$$ <=2 S Vancomycin $ 0.5 S Reference Range: S= Susceptible, I= Intermediate, R= Resistant MICS are expressed in micrograms per mL (NF) indicates non-formulary drug at [facility]. Approval by Infectious Disease Specialist required before non-formulary drugs may be ordered and/or dispensed. Testing performed on Vitek 2 instrument Reviewed by ERLIN Reviewed by LEW Reviewed by LEW T4 FREE DIRECT 04/19/19 NOTE Original Ordering Provider: Erlin Martinez T4 FREE DIRECT 0.84 ng/dL 0.76-1.46 Reviewed by ERLIN THYROID STIM HORMONE (TSH) 04/19/19 NOTE Original Ordering Provider: Erlin Martinez TSH 0.95 uIU/mL 0.358-3.74 Reviewed by ERLIN GLUCOSE CHALLENGE GEST 1H 50G 04/19/19 NOTE Original Ordering Provider: Erlin Martinez GLU GEST 50G 1H 136 mg/dL 70-140 FREE T3 04/19/19 NOTE Original Ordering Provider: Erlin Martinez FREE T3 2.6 pg/mL 2.18-3.98 Reviewed by ERLIN CBC-COMPLETE BLOOD CNT NO DIFF 04/19/19 NOTE Original Ordering Provider: Erlin Martinez WBC 14.7 K/mm3 4.4-11.0 H w RBC 3.96 M/mm3 4.2-5.4 L HGB 11.4 g/dL 12.0-15.0 L HCT 34.9 % 37-47 L MCV 88.1 fL 81-99 MCH 28.8 pg 27.0-32.0 MCHC 32.7 g/dL 32-36 RDW CV 13.2 % 11.6-14.6 RDW SD 42.7 fl 35.1-43.9 PLT 286 K/mm3 150-450 MPV 11.2 fl 6.2-12.0 Reviewed by ERLIN CULTURE, URINE 02/13/19 NOTE Original Ordering Provider: Erlin Martinez Urine Culture ORGANISM 1: Streptococcus agalactiae (B) Tuttle Count 50,000-80,000 ORGANISM 2: Mixed Gram Positive Organisms Tuttle Count 50,000-80,000 MIX CULTURE Mixed contaminants. Submit a new specimen if indicated. Streptococcus agalactiae (B): REACTION Ampicillin $ <=0.25 S Benzylpenicillin NF <=0.06 S Ceftriaxone $ <=0.12 S Clindamycin $$ >=1 R Inducable Clindamycin Resistan NEG Linezolid $$$$ <=2 S Vancomycin $ 0.5 S (NF) indicates non-formulary drug at [facility]. Approval by Infectious Disease Specialist required before non-formulary drugs may be ordered and/or dispensed. * CLSI guidelines does not recommend testing of cephalosporins. This interpretation is deduced from Beta-lactam/penicillin results. Reviewed by ERLIN Reviewed by ERLIN Initial OB Labs 11/07/18 Blood Type O Rh Type POSITIVE Antibody Screen NEGATIVE Negative Hemoglobin Initial OB 13.4 Hematocrit Initial OB 39.7 PLT 297 Rubella NON-IMMUNE Immune <0.90 VDRL Normal Non Reactive HBsAg NEGATIVE Negative HIV Test NEGATIVE Negative Reviewed by ERLIN Impression /Plan: 40-week intrauterine with breech presentation. Patient also desires permanent sterilization. Plan primary section and bilateral tubal occlusion with Filshie clips. Discussed risks, benefits, and alternatives. Discussed the permanent nature of the tubal, the failure rate of 1 to 2%, and the availability of other nonpermanent control options and all questions were answered. Preparations in progress for delivery.
[2019-06-29] VITALS (15 sets, daily range): BP systolic 102–139; BP diastolic 47–82; PULSE 70–96; RESP 12–24; TEMP 36.1–36.8; O2SAT 95–98; BMI 40.8
[2019-06-29] MEDS: Lactated Ringers 1,000 ML 600 ML IV (10:00)
[2019-06-29 10:53] LABS: Absolute Lymphocyte Count 3.93 X10^3/uL (0.83-4.51); Absolute Neutrophil Count 10.8 X10^3/uL (2.0-7.7); Basophil# 0.06 X10^3/uL; Basophil% 0.4 % (0-1); Eosinophil# 0.14 X10^3/uL; Eosinophils% 0.9 % (0-5); Hematocrit 35.1 % (37-47); Hemoglobin 11.4 g/dL (12.0-15.0); Lymphocyte # 3.93 X10^3/ul (4.0); Lymphocyte % 24.5 % (19-41); Mean Corp Hgb Conc 32.5 g/dL (32-36); Mean Corpuscular Hgb 27.9 pg (27.0-32.0); Mean Corpuscular Volume 85.8 fL (81-99); Mean Platelet Vol. 11.9 fl (6.2-12.0); Monocyte# 1.01 X10^3/uL; Monocyte% 6.3 % (0-10); NRBC Flagged by Analyzer 0 % (0-5); Neutrophil # 10.76 X10^3/uL (2.7-7.7); Neutrophil % 67.2 % (47-70); Platelet Count 311 K/mm3 (150-450); RBC Distribution Width CV 15.6 % (11.6-14.6); RBC Distribution Width SD 48.3 fl (35.1-43.9); Red Blood Count 4.09 M/mm3 (4.2-5.4)
[2019-06-29] MEDS: Sodium Citrate/Citric Acid 30 ML UDC PO (11:55)
--- NOTE | 2019-06-29 12:38 | PCM.OPRPT ---
Delivery Classification: Scheduled Final GUILLERMO: 06/28/19 Final GUILLERMO Source: US <20 weeks Gestational age: 40 Weeks and 1 Days Type of Anesthesia:: Spinal Date of Procedure: 06/29/19 Pre-Operative Diagnosis: Breech Presentation: Desires Permanent Sterilization Post-Operative Diagnosis: Breech Presentation: Desires Permanent Sterilization Description of Procedure: Surgeon: Wolfgang Martinez MD, FACOG Burial Vault Deliverer And Installer:FOSTER Bhat Anesthesia: Vanessa Lara CRNA Procedure: Primary low Transverse Cervical Caesarean Section and bilateral tubal occlusion with Filshie clips Findings: Viable male infant with Apgars of 8/9 in varsha breech presentation with clear amniotic fluid and normal three-vessel placenta with cord around the neck x3 tight. Indication: This is a 23-year-old who presents for her first at 40+ weeks gestation. care has otherwise been uneventful except for breech presentation noted at her visit yesterday. She also desires permanent sterilization. The patient has been counseled regarding the risk and indications of this procedure including the possibility of bleeding infection and injury to surrounding structures such as bowel bladder. She also understands the permanent nature of the tubal, the failure rate of 1 to 2%, and the availability of other nonpermanent control options. All questions were answered. Procedure: Patient was taken to the operating room where after spinal anesthesia was placed, the patient was prepped and draped in usual sterile fashion and a Trejo catheter was placed. The abdomen was entered through the patient's prior Pfannenstiel incision and peritoneum was entered bluntly. After developing a bladder flap on the lower uterine segment a low transverse incision was made on the uterus and breech was delivered onto the operative field and the nose mouth and oropharynx were bulb suctioned. Subsequently a viable male was born with Apgars of 8/9. The was noted to cry move all extremities vigorously on the operative field. The umbilical cord was doubly clamped and ligated and infant handed to the nursery personnel who were present for the delivery. Placenta was delivered and noted to be 3 vessels and normal. Uterus was exteriorized and remaining placental tissue was removed. The uterus was then closed in 2 layers first with running locked 0 Vicryl suture followed by a second imbricating layer with 0 Vicryl suture. 0 Vicryl suture was then used in a horizontal mattress interrupted fashion to affect final hemostasis of the uterine incision line. Normal fallopian tubes and ovaries were visualized and Filshie clips were placed approximately 2 cm from the uterine fundus on each tube. The uterus was returned to the pelvis. Hemostasis was noted and rectus abdominis muscles were reapproximated in the midline with interrupted Number 0 Vicryl suture in a horizontal mattress fashion. Fascia was closed with running Number 1 PDS Strata fix suture. Subcutaneous tissue was irrigated with copious amounts of saline solution and then closed with running 3-0 Vicryl suture. Skin was closed with 4-0 monocryl suture in a running subcuticular fashion. Steri strips and Mepilex were placed across the incision. The patient tolerated the procedure well with some nausea near the end of the case and discomfort with a spinal effectiveness diminishing. She was taken to the recovery room in satisfactory condition. Sponge, needle, and instrument counts were all reportedly correct. EBL was less than 500 cc. Clindamycin 900 mg and gentamicin IV were given prior to the procedure. Spicemen to Pathology: None Complications: None Amniotic Fluid Description: Clear Placenta Disposition: [facility] Drain: Trejo to straight drain Fluids Replaced: Crystalloid Cord Entanglement: None Cord Vessel Description: 3 Vessels Esitmated Blood Loss (ml): 500 cc Antibiotic Given: - - Clindamycin 900 mg IV and gentamicin Pt instructed on risks of surgery: Bleeding, Infection, Failure Rate of 1 to 2%, Injury to surrounding structure(s) including bowel and bladder, Availability of other non-permanent control options - Admit VTE Documentation VTE Present on Admission: Yes VTE Mechan Device Prophylaxis: SCD's VTE Pharm Prophylaxis ordered?: Yes
--- NOTE | 2019-06-29 12:42 | DCINST_ITS ---
<Wolfgang Martinez - Last Filed: 06/29/19 12:42> Discharge Diet: No Restrictions Discharge Activity: May not drive while taking narcotic pain medications., May Shower, May Take a Tub Bath May resume sexual activity in: 4-6 weeks Lifting Restrictions: 20 pounds Additional Activity Instructions:: Nothing in the vagina for 4-6 weeks. You may return to work/school in 6 weeks. Call your doctor if your incision/area has: Continuous Slow Oozing, Sudden Increased Bleeding, Increased Pain/ Swelling, Increased Redness, Foul Smelling Discharge Call your doctor if you observe: Fever of 101 or Higher, Inability to urinate, Inability to have a bowel movement, Using more than one pad per hour Additional Instructions: If you experience any of the following, contact your healthcare provider. * Bleeding that soaks a pad every hour for 2 hours * Unrelieved incision or abdominal pain * Swelling, redness, discharge or bleeding from your incision or epi siotomy site * Your incision begins to separate * Problems urinating (including inability to urinate or burning while urinating). * Visual changes * Severe headache * Flu-like symptoms * Pain or redness in one of both of your breasts * Pain, warmth, tenderness or swelling in your legs, especially the calf area * Frequent nausea and vomiting * Symptoms of depression or anxiety If you experience any of the following, call 911 or go to the nearest Emergency Room. * Chest pain * Problems breathing * Seizure activity * Partial or complete paralysis of a body part, slurred speech, weakness or drooping of the face, or a sudden inability to walk or hold your balance Allergies/Adverse Reactions: Allergies Penicillins Allergy (Verified 06/29/19 10:01) Angioedema Medications to take at Discharge Pnv No.95/Ferrous Fum/Folic AC [ Caplet] 1 ea PO DAILY 01/21/19 Docusate Sodium [Colace] 100 mg PO BID PRN PRN #30 cap 06/29/19 Oxycodone [Oxyir] 5 mg PO Q6H PRN PRN 7 Days #20 tab 06/29/19 The following prescriptions were given: Docusate Sodium [Colace] 100 mg PO BID PRN PRN #30 cap PRN Reason: Constipation Transmission Status: Received by [facility] Oxycodone [Oxyir] 5 mg PO Q6H PRN PRN 7 Days #20 tab PRN Reason: Pain Score 6-10/10 Transmission Status: Received by [facility] Follow-Up: Call to make an appointment with your doctor for an incision check in 1-2 weeks. You will also need a 6 week post- follow up appointment. Test results from this visit will be discussed in further detail at your follow- up appointment, if applicable. Please Follow Up With: Wolfgang Martinez MD - [phone] When: Call to make an appointment for an incision check in 2 weeks. Primary Care Physician: Care Physician,No Primary [Primary Care Provider] - <Michelle Meyer - Last Filed: 07/01/19 11:32> Additional Instructions: If you experience any of the following, contact your healthcare provider. * Bleeding that soaks a pad every hour for 2 hours * Fever 100.4 or higher * Unrelieved incision or abdominal pain * Swelling, redness, discharge or bleeding from your incision or episiotomy site * Your incision begins to separate * Problems urinating (including inability to urinate or burning while urinating). * Visual changes * Severe headache * Flu-like symptoms * Pain or redness in one of both of your breasts * Pain, warmth, tenderness or swelling in your legs, especially the calf area * Frequent nausea and vomiting * Symptoms of depression or anxiety If you experience any of the following, call 911 or go to the nearest Emergency Room. * Chest pain * Problems breathing * Seizure activity * Partial or complete paralysis of a body part, slurred speech, weakness or drooping of the face, or a sudden inability to walk or hold your balance Follow-Up: Call to make an appointment with your doctor for an incision check in 1-2 weeks. You will also need a 6 week post- follow up appointment. Test results from this visit will be discussed in further detail at your follow- up appointment, if applicable.
[2019-06-29] MEDS: Oxytocin 30 units/NS 500 ml 30 UNITS/500 ML IV.SOLN 167 UNITS IV (13:45)
[2019-06-29] MEDS: Lactated Ringers 1,000 ML 100 ML IV (17:04)
[2019-06-29] MEDS: Enoxaparin 40 MG/0.4 ML Syringe SC (18:36)
[2019-06-29] MEDS: Ketorolac 30 MG/ML Syringe IV (18:37)
[2019-06-29] MEDS: 0.9% Saline Lock 10 ML Syringe IV (18:41)
[2019-06-29] MEDS: HYDROmorphone 1 MG/ML Syringe IV (20:46)
[2019-06-30] MEDS: Lactated Ringers 1,000 ML 100 ML IV (01:11)
[2019-06-30] MEDS: Ketorolac 30 MG/ML Syringe IV ×4 (01:11→20:09)
[2019-06-30 01:15] VITALS: PULSE 76; RESP 16; O2SAT 96
[2019-06-30 02:38] VITALS: BP 106/75; PULSE 78; RESP 16; TEMP 36.6; O2SAT 95
[2019-06-30 05:57] VITALS: BP 109/68; PULSE 77; RESP 17; O2SAT 95
[2019-06-30] MEDS: Acetaminophen 500 MG Tablet 1000 MG PO (06:05)
[2019-06-30 06:21] LABS: Hematocrit 28.9 % (37-47); Hemoglobin 9.4 g/dL (12.0-15.0); Mean Corp Hgb Conc 32.5 g/dL (32-36); Mean Corpuscular Hgb 27.6 pg (27.0-32.0); Mean Platelet Vol. 11.3 fl (6.2-12.0); Platelet Count 270 K/mm3 (150-450); RBC Distribution Width CV 15.7 % (11.6-14.6); RBC Distribution Width SD 47.8 fl (35.1-43.9)
--- NOTE | 2019-06-30 08:15 | PN.OBGYN_ITS ---
Subjective: Feeling well, POD #1. Wanting IV out, to take oral medications and wants to discharge tomorrow. Objective: Sitting up in bed upon entering room. Vital signs stable. Hg 11.4 down to 9.4, stable. Cutler in place. IV infusing. Dressing CDI. SCDs on intact. - Physical Exam Vitals/I&O's: Vital Signs Temp Pulse Resp BP Pulse Ox 97.9 F 77 17 109/68 95 06/30/19 02:38 06/30/19 05:57 06/30/19 05:57 06/30/19 05:57 06/30/19 05:57 Oxygen Delivery Method Room Air Weight: 101.242 kg Body Mass Index (BMI) 40.8 Intake and Output for Last 24 Hours 06/28/19 06/29/19 06/30/19 23:59 23:59 23:59 Intake Total 1892 / 1892 2611.67 / 2611.67 Output Total 525 / 525 600 / 600 Balance 1367 / 1367 / General: Alert, Oriented x3, Cooperative HEENT: Atraumatic, PERRLA, EOMI, Normocephalic Neck: Supple, No JVD, Negative Carotid Bruits Lungs: Clear to auscultation, Normal air movement Cardiovascular: Regular rate, No murmurs Abdomen: Bowel Sounds Present, Soft, Non Tender, Passing Flatus, - - funsud u/2 Extremities: No edema, Capillary Refill Less than 3 Seconds Skin: No rashes, No breakdown, Incision - Dressing CDI Musculoskeletal: No Tenderness to Palpation of Joints or Extremities Neurological: Cranial nerves II-XII grossly intact Psych/Mental Status: Normal Affect, Appropriate Laboratory Results 06/29/19 10:30: WBC 16.0 H, RBC 4.09 L, Hgb 11.4 L, Hct 35.1 L, MCV 85.8, MCH 27.9, MCHC 32.5, RDW Std Deviation 48.3 H, RDW Coeff of Liane 15.6 H, Plt Count 311, MPV 11.9, Immature Gran % (Auto) 0.700, Neut % (Auto) 67.2, Lymph % (Auto) 24.5, [facility] % (Auto) 6.3, Eos % (Auto) 0.9, Baso % (Auto) 0.4, Absolute Neuts (a uto) 10.8 H, Absolute Lymphs (auto) 3.93, Nucleated RBC % 0 06/29/19 10:30: Blood Type O POSITIVE, Antibody Screen NEGATIVE 06/30/19 06:10: WBC 15.0 H, RBC 3.40 L, Hgb 9.4 L, Hct 28.9 L, MCV 85.0, MCH 27.6, MCHC 32.5, RDW Std Deviation 47.8 H, RDW Coeff of Liane 15.7 H, Plt Count 270, MPV 11.3 Current Medications Acetaminophen (Tylenol) 1,000 mg PO Q8H PRN PRN PRN Reason: Pain Score 1-3/10;Temp>99.6F Last Admin: 06/30/19 06:05 Dose: 1,000 mg Documented by: Bisacodyl (Dulcolax) 10 mg RECTAL UD PRN PRN Reason: If no BM Enoxaparin Sodium (Lovenox) 40 mg SC DAILY [facility] Last Admin: 06/29/19 18:36 Dose: 40 mg Documented by: Hydrocortisone (Hytone) 1 applic TOPICAL TID PRN PRN; Protocol PRN Reason: Discomfort Hydromorphone HCl (Dilaudid Inj) 0.5 - 1.5 mg IV Q3H PRN PRN PRN Reason: Pain Score 4-10/10 Stop: 06/30/19 13:36 Last Admin: 06/29/19 20:46 Dose: 1 mg Documented by: Lactated Ringer's () 1,000 mls @ 100 mls/hr IV .Q10H [facility] Last Admin: 06/30/19 01:11 Dose: 100 mls/hr Documented by: Naloxone HCl 4 mg/ Dextrose 504 mls @ 0 mls/hr IV .Q0M PRN; Protocol PRN Reason: Respiratory depression Ibuprofen (Motrin) 600 mg PO Q6H PRN PRN PRN Reason: Pain Score 1-3/10 Ketorolac Tromethamine (Toradol) 30 mg IV Q6H [facility] Stop: 07/01/19 13:31 Last Admin: 06/30/19 01:11 Dose: 30 mg Documented by: Methylergonovine Maleate (Methergine) 0.2 mg IM X1 PRN PRN Reason: Uterine Atony Naloxone HCl (Narcan) 0.02 mg IV Q1M PRN PRN Reason: RR <10 and pt unresponsive Ondansetron HCl (Zofran) 4 mg IV Q4H PRN PRN PRN Reason: Nausea Oxycodone HCl (Oxyir) 5 - 10 mg PO Q4H PRN PRN PRN Reason: Pain Score 4-10/10 Prochlorperazine Edisylate (Compazine Iv) 10 mg IV Q6H PRN PRN PRN Reason: NAUSEA Senna/Docusate Sodium (Senokot-S, Maggy-Colace) 0 tablet PO DAILY PRN PRN Reason: Constipation Simethicone (Mylicon) 80 mg PO PCHS PRN PRN Reason: Indigestion/stomach pain Sodium Chloride () 5 - 15 ml IV UD PRN PRN Reason: SALINE FLUSH Last Admin: 06/29/19 18:41 Dose: 10 ml Documented by: Zolpidem Tartrate (Ambien (Generic)) 5 mg ORAL QHS PRN PRN PRN Reason: Insomnia Medical Necessity - Tobacco Use Smoking Status: Current every day smoker Assessment/Plan POD#1 Primary C section for breech presentation Stable postop. incision CDI. AVSS Pain control adequate. Is nursing male well. Inc diet and activity as tolerated. Plan Oxycodone q 6 hrs, Tylenol, Ibuprofen and stool softeners prn. Encourage C&DB IS Advised of potential for postop fevers, pneumonia. Nursing assist prn. Continue care, transition to oral medications. Remove IV and cutler today as tolerated. Possible discharge tomorrow is stable.
[2019-06-30 09:00] VITALS: BP 107/61; PULSE 81; RESP 18; TEMP 36.5; O2SAT 96
[2019-06-30] MEDS: oxyCODONE 5 MG Tablet PO (09:41)
[2019-06-30] MEDS: Senna/Docusate Sodium 1 Tablet PO (09:42)
[2019-06-30] MEDS: 0.9% Saline Lock 10 ML Syringe IV ×3 (09:44→20:09)
[2019-06-30] MEDS: Enoxaparin 40 MG/0.4 ML Syringe SC (10:03)
[2019-06-30 13:59] VITALS: BP 122/71; PULSE 89; RESP 18; TEMP 36.8
--- NOTE | 2019-06-30 17:30 | CASEMGMT ---
Social Work Assessment Labor and Delivery Unit Date of Referral: 06.30.2019 Time of Referral: [id number] Referred By: Dr. Villegas Date of Intervention: 06.30.2019 Time of Intervention: 1729 Reason for Referral: resources History obtained from: medical records and mother of baby (MOB) Emily Myers; father of baby (FOB) Yfn Myers also present for part of conversation. Household composition: MOB, FOB, MOB?s older children live with FOB?s parents, FOB?s sister Betty, and Betty?s 2 children. MOB reports home situation is safe and adequate and to have enough room in the home. Patient's parent/guardian status: PEPE who is age 24 is to [facility] for the last 3 years. Upon admission, PEPE denies any domestic violence or abuse issues. PEPE has 3 children in total, 2 from a prior relationship and now from current marriage to Yfn. Minor Children include: Yakima (born 12.09.2010), Brynohemi (born 04.07.2014) and Ria (Born 06.[birth year].2019). Medical History: PEPE is G4, P2 to 3 after delivering Ria. care started at 10 weeks and regular. Baby Ria was born via repeat caesarian section. Apgars 9 and 10 at 1 and 5 minutes of life respectively. Ria?s weight was 7 pounds 4 ounces. Educational Status: PEPE has 10th grade education. Can read, write, and understand. Financial Status: PEPE does not currently work. KEI works part-time and is on SSI disability. Finances are reported to be adequate. Family lives with other family, which also helps financially stability. Infant Supplies: PEPE reports to have needed supplies including a car seat, pack-n-play, diapers, wipes, clothing. MOB is breast feeding. Childcare/Caregiver(s): MOB. Transportation: FOB or his mother assist. Programs/Agencies Involved: PEPE has JFS for medical and is thinking of [place]. MOB agrees to an [employer] referral. Children Services/Legal Issues: None reported. Behavioral Health Issues: Mental Health History: PEPE has history of depression and depression. more with firs baby and less intense after second baby. PEPE was recently hospitalized in April 2019 at [facility] for 5 days due to thoughts and plans for suicide. MOB was reportedly walking down the road the end of April and contemplating going in front of a car. The was a factor in MOB not following through with thoughts, and was picked up by a wilman Cervantes and taken to the hospital for further evaluation. MOB reports the hospitalization was helpful and helped to get MOB back on track. MOB was not started on medication due to being , but reports would be willing to do so in the period if counseling and family support is not adequate. MOB reports is now seeing a counselor at [facility]. FOB reports MOB has an appointment on 07.10.2019. MOB denies any thoughts of suicide since hospitalization or since delivery of baby. Substance Use History: MOB denies history of substance use or abuse issues. Family History: Not discussed. FOB admits to depression when younger but nothing current. Drug Screens: negative on 05.19.2019 Family/Social Stressors: PEPE?s mother in the beginning of April 2019, which was a significant stressor to MOB?s mental health and coping. Support Systems: MOB reports FOB has been supportive and continues to be a primary support, as well is a person can talk to if feeling down. MOB has a sister who is in and out of the home checking on MOB. FOB?s mother is also a support. Depression/Shaken Baby/Safe Sleeping: Information given on all topics. Educated to risk for depression and considering current grieving from MOB?s mother?s . Introduced that fathers can also develop , so paternal self-care is also important. ASSESSMENT: Met with MOB and FOB together in room. MOB cooperative held good eye contact, speech within normal limits, thought process logical. MOB?s affect constricted but smiled at appropriate times. MOB stating to feel better emotionally as compared to April, plans to remain in counseling and clair support system for self-care. MOB reports to have adequate support, to have needed baby supplies, and to have a an with this baby. MOB denies any thoughts, plans, intent for suicide currently of since discharge from [facility] the end of April. MOB reports would let FOB, or [facility] know if thoughts start to arise. MOB voices her children as a reason for continuing to live. PLAN: MOB and baby to home when ready. [facility] resource lists given, depression packet provided. Early [employer] start referral form signed and will be faxed. MOB states intent to follow up at [facility] and FOB reports there is an appointment in place for 07.10.19. No other services requested or indicated. -WADE Nichols, RESIDENCE DIRECTOR
[2019-06-30 20:00] VITALS: BP 107/69; PULSE 99; RESP 18; TEMP 37.1
[2019-07-01 02:30] VITALS: BP 113/64; PULSE 90; RESP 18; TEMP 37.1
[2019-07-01] MEDS: 0.9% Saline Lock 10 ML Syringe IV ×2 (02:31→07:50)
[2019-07-01] MEDS: Ketorolac 30 MG/ML Syringe IV ×2 (02:31→07:49)
[2019-07-01 07:50] VITALS: BP 119/63; PULSE 74; RESP 16; TEMP 36.8
[2019-07-01] MEDS: Enoxaparin 40 MG/0.4 ML Syringe SC (10:21)
--- NOTE | 2019-07-01 12:47 | PCM.PN.OB ---
Subjective: Pain well controlled, tolerating diet, passing flatus, nursing well; spouse bedside and supportive Objective: AVSS Nipples mildly irritated Fudus firm, midline, u/1, lochia scant LTCS incision well approximated, no drainage noted; steri strips peeling around R horizontal edge, otherwise intact - Physical Exam Vitals/I&O's: Vital Signs Temp Pulse Resp BP Pulse Ox 98.2 F 74 16 119/63 96 07/01/19 07:50 07/01/19 07:50 07/01/19 07:50 07/01/19 07:50 06/30/19 09:00 Oxygen Delivery Method Room Air Weight: 223 lb 3.2 oz Body Mass Index (BMI) 40.8 Intake and Output for Last 24 Hours 06/29/19 06/30/19 07/01/19 23:59 23:59 23:59 Intake Total 1892 / 1892 3521.67 / 3521.67 Output Total 525 / 525 850 / 850 600 / 600 Balance 1367 / 1367 2671.67 / 2671.67 -600 / -600 General: Alert, Oriented x3, Cooperative, No apparent distress HEENT: PERRLA, EOMI Oral: Moist Mucosa Neck: Supple Lungs: Clear to auscultation, Normal air movement Cardiovascular: Regular rate, Regular Rhythm Abdomen: Bowel Sounds Present, Soft, Non Tender, Non-Distended, Passing Flatus Extremities: Edema - mild, non pitting, bilateral pedal Skin: No rashes Musculoskeletal: No Tenderness to Palpation of Joints or Extremities Neurological: Cranial nerves II-XII grossly intact, Deep Tendon Reflexes 2+/4 and Symmetrical, Neuro grossly intact Psych/Mental Status: Normal Affect, Appropriate, Alert and oriented to time, place, person, mood and affect Medical Necessity - Tobacco Use Smoking Status: Current every day smoker Assessment/Plan Assessment: 23yo G4 now P2012 delivered via primary LTCS w/bilateral tubal occlusion w/Filshie clips at 401w1d gestation by 10w5D Mild anemia POD/PPD #2, normal involution, normal PP course Plan: Discharge teaching completed, Diet recommendations/warning signs for mild anemia discussed, continue PNV w/Iron daily LTCS incision steri strips reinforced with new Mepilix dressing RTO 1 week for incision check/dressing removal, 6 weeks for PP checkup
--- NOTE | 2019-07-03 11:27 | CASEMGMT ---
Social Work Labor and Delivery Faxed [employer] referral form to confirmed fax number at [employer]. Referral form signed by Mother of baby. No other services requested or indicated. -FELTON Nichols, CAN INSPECTOR
== END 2019-07-01 12:10 | disposition home or self-care (01) | DRG 539 ==
PROVIDERS: Admitting Provider Obstetrics & Gynecology; Visit Provider Obstetrics & Gynecology
PROC: 10D00Z1 Extraction of Products of Conception, Low, Open Approach (ICD-10-PCS; CPT 59514; principal; 2019-06-29 11:45)
DX: O32.1XX0 Maternal care for breech presentation, not applicable or unspecified (principal); O69.1XX0 Labor and delivery complicated by cord around neck, with compression, not applicable or unspecified; O99.824 Streptococcus B carrier state complicating childbirth; O99.334 Smoking (tobacco) complicating childbirth; F17.210 Nicotine dependence, cigarettes, uncomplicated; Z3A.40 40 weeks gestation of pregnancy; Z37.0 Single live birth; Z30.2 Encounter for sterilization
CPT/HCPCS: 85025; 85027; 86850; 86900; 86901; 99218; J7120; A4216; G0378; J2405

== ENCOUNTER 2019-07-03 21:08 | Outpatient (CLI) | payer MEDICAID, SELFPAY ==
[2019-06-29 10:00] VITALS: BMI 40.8
[2019-07-03 21:28] VITALS: BMI 40.6
[2019-07-03 22:25] LABS: Hematocrit 29.7 % (37-47); Hemoglobin 9.4 g/dL (12.0-15.0); Mean Corp Hgb Conc 31.6 g/dL (32-36); Mean Corpuscular Hgb 27.2 pg (27.0-32.0); Mean Corpuscular Volume 85.8 fL (81-99); Mean Platelet Vol. 10.9 fl (6.2-12.0); Platelet Count 387 K/mm3 (150-450); RBC Distribution Width CV 15.9 % (11.6-14.6); RBC Distribution Width SD 49.1 fl (35.1-43.9); Red Blood Count 3.46 M/mm3 (4.2-5.4); White Blood Count 10.9 K/mm3 (4.4-11.0)
[2019-07-03 22:36] LABS: Prothrombin Time (Protime)PT. 12.8 SECONDS (11.7-14.9)
[2019-07-03 22:37] LABS: AST(SGOT) 18 U/L (15-37); Alanine Aminotransfer ALT/SGPT 24 U/L (13-56); Creatinine, Serum 0.53 mg/dL (0.55-1.02); EST Glomerular Filtration Rate 150 mL/min (>60); Est Glom Filt Rate - Afr Amer 181 mL/min (>60); Estimated Creatinine Clearance 129.45 ml/min; Partial Thromboplast Time 28.1 Seconds (24.1-36.2); Uric Acid 4.5 mg/dL (2.6-6.0)
[2019-07-03 22:38] LABS: Protein, Urine (Random) 41.5 mg/dL (<11.9); Protein:Creat Ratio 187 mg/g CRE (0-200)
--- NOTE | 2019-07-03 22:55 | NURSING ---
Patient delivered via repeat c/s on 06/29/19. Pt came in with c/o frontal headache since yesterday, took ibuprofen but did not get better. Pt also with spots in vision yesterday, pain in right calf, swelling in both legs, numbness in left arm and numbness/tingling in both legs, and a fever of 101 yesterday. At 2150 exam findings reported to Oliver DIAZ. Orders received for labs to be drawn and urine collected. Report abnormal findings, if labs WNL have patient follow up with office in morning.
--- NOTE | 2019-07-04 21:40 | OB.TRI.NOTE ---
History of Present Illness Date of Service: 07/03/19 Was patient seen by the physician?: No Reason For Visit: POST HEADACHE Date of Service: 07/03/19 Final GUILLERMO: 06/29/19 Final GUILLERMO Source: US <20 weeks Gestational age: 40 Weeks and 5 Days Allergies Penicillins Allergy (Verified 07/03/19 21:30) Angioedema Laboratory Studies: Laboratory Tests 07/03/19 07/03/19 07/03/19 Range/Units 22:05 22:05 22:05 WBC (4.4-11.0) K/mm3 RBC (4.2-5.4) M/mm3 Hgb (12.0-15.0) g/dL Hct (37-47) % MCV (81-99) fL MCH (27.0-32.0) pg MCHC (32-36) g/dL RDW Std Deviation (35.1-43.9) fl RDW Coeff of Liane (11.6-14.6) % Plt Count (150-450) K/mm3 MPV (6.2-12.0) fl PT 12.8 (11.7-14.9) SECONDS INR 1.0 APTT 28.1 (24.1-36.2) Seconds Creatinine 0.53 L (0.55-1.02) mg/dL Estim Creat Clear Calc 129.45 ml/min Est GFR (MDRD) Af Amer 181 (>60) mL/min Est GFR (MDRD) Non-Af 150 (>60) mL/min Uric Acid 4.5 (2.6-6.0) mg/dL AST 18 (15-37) U/L ALT 24 (13-56) U/L U Random Total Protein 41.5 H (<11.9) mg/dL Urine Creatinine 222.00 (NO RANGE EST.) mg/dL Protein/Creatinin Ratio 187 (0-200) mg/g CRE 07/03/19 Range/Units 22:05 WBC 10.9 (4.4-11.0) K/mm3 RBC 3.46 L (4.2-5.4) M/mm3 Hgb 9.4 L (12.0-15.0) g/dL Hct 29.7 L (37-47) % MCV 85.8 (81-99) fL MCH 27.2 (27.0-32.0) pg MCHC 31.6 L (32-36) g/dL RDW Std Deviation 49.1 H (35.1-43.9) fl RDW Coeff of Liane 15.9 H (11.6-14.6) % Plt Count 387 (150-450) K/mm3 MPV 10.9 (6.2-12.0) fl PT (11.7-14.9) SECONDS INR APTT (24.1-36.2) Seconds Creatinine (0.55-1.02) mg/dL Estim Creat Clear Calc ml/min Est GFR (MDRD) Af Amer (>60) mL/min Est GFR (MDRD) Non-Af (>60) mL/min Uric Acid (2.6-6.0) mg/dL AST (15-37) U/L ALT (13-56) U/L U Random Total Protein (<11.9) mg/dL Urine Creatinine (NO RANGE EST.) mg/dL Protein/Creatinin Ratio (0-200) mg/g CRE Review of Systems Constitutional: Denies: Chills, Fever, Weight Change HEENT: Reports: Head Aches - Persistent headache. Denies: Sinus Congestion, Sinus Drainage Cardiovascular: Denies: Chest Pain, Palpitations Respiratory: Denies: Cough, Shortness of breath at rest, Sputum production Gastrointestinal: Denies: Abdominal Pain, Nausea, Vomiting Genitourinary: Denies: Dysuria Musculoskeletal: Denies: Joint Pain, Joint Tenderness Skin: Reports: Wounds - Csection incision. Denies: Rash Neurological: Denies: Numbness, Tingling, Focal weakness Psychiatric: Denies: Anxiety, Depression, Homicidal Ideations, Suicidal Ideations Hematologic/ Lymphatic: Denies: Easy Bruising, Easy Bleeding Physical Exam General: Alert, Oriented x3, No apparent distress HEENT: Atraumatic, Normocephalic. Negative for: Thyromegaly, Lymphadenopathy Cardiovascular: Regular rate, Regular Rhythm Lungs: Clear to auscultation Abdomen: Bowel Sounds Present, - - C section incision Neurological: Deep Tendon Reflexes 2+/4 and Symmetrical, Neuro grossly intact ANESTHESIOLOGY PHYSICIAN: Normal external genitalia. Negative for: Vulvar lesions Impression/Plan A: Here with headache. Status post on 12-5-19 Pre-E labs obtained VSS P: Pre-E labs negative Headache resolves with hydration and rest To follow up in office if headache is not relieved with Tylenol, may try Fioricet. To call for Rx if needed
== END 2019-07-03 22:52 | disposition home or self-care (01) ==
LOC: WPOUT 21:27 → WP 21:28
PROVIDERS: Obstetrics & Gynecology; Referring Provider Obstetrics & Gynecology; Visit Provider Obstetrics & Gynecology
DX: O90.89 Other complications of the puerperium, not elsewhere classified (principal); R51 Headache
CPT/HCPCS: 36415; 82565; 82570; 84156; 84450; 84460; 84550; 85027; 85610; 85730; 99218; G0378

== ENCOUNTER 2019-07-09 22:50 | Emergency (ER) | payer MEDICAID, SELFPAY ==
[2019-07-09 22:50] VITALS: BP 128/81; PULSE 60; RESP 12; TEMP 36.7; O2SAT 100; BMI 39.7
--- NOTE | 2019-07-09 22:52 | ED.DCSUM_ITS ---
History of Present Illness Chief Complaint: Abd Pain Detail of Chief Complaint: wound Informant: Patient Onset: Today Context: Sudden Onset Current Severity: Moderate Maximum Severity: Moderate Narrative: Patient is present in the emergency room with her 10-day-old who is being seen as a patient. Patient was outside and turned to quickly come back indoors when she noted a pulling sensation in her right lower abdomen. She noted some drainage from her site. Patient underwent 10 days ago secondary to baby being in breech position. She did test positive for group B strep and received antibiotics. Past Medical History - Allergies and Home Meds Allergies/Adverse Reactions: Allergies Penicillins Allergy (Verified 07/03/19 21:30) Angioedema Primary Care Physician: Wolfgang Martinez MD [STAFF PHYSICIAN] - 5-7 Days Prior records reviewed: Yes Past Medical History: - - Lives: With Family Smoking Status: Current every day smoker Review of Systems General: Denies: Chills, Fever Eyes: Denies: Visual changes - bilaterally ENT: Denies: Bilateral ear pain Cardiovascular: Denies: Chest pain Respiratory: Denies: Dyspnea, Cough Gastrointestinal: Reports: Abdominal pain. Denies: Vomiting, Diarrhea Genitourinary: Denies: Dysuria Skin: Reports: Wounds Neurological: Denies: Headache Allergy: Denies: Uticaria Physical Exam Inital Vital Signs reviewed: Yes General: Well nourished, Well developed Head: Normocephalic ENT: Moist mucous membranes Cardiovascular: Regular rate, Regular rhythm Respiratory: No distress, CTA bilaterally Abdomen: Soft, Tender - Tenderness palpation on the right lateral transverse C- section incision. Small amount of yellow-tinged serosanguineous drainage. Mild induration of the wound. Extremities: Nontender Skin: Normal color - Except as above Neurological: Alert, Oriented x3 Psychological: Normal affect Diagnostic/Tx/Re-eval - Medical Decision Making Bedside ultrasound was performed that shows only a small fluid collection at the incision site. She likely has a small focal seroma. She will be covered with doxycycline as there is some haziness to the fluid and induration around the wound. ED Disposition - Plan for ED Patient: Disposition: Home or Assisted Living Diagnosis: Postoperative wound infection Instructions: POST OP WOUND CHECK, Pain Prescriptions: Doxycycline 100 mg PO BID #20 cap Transmission Status: Received by [id number] Referrals: Wolfgang Martinez MD [STAFF PHYSICIAN] - 5-7 Days
[2019-07-09] MEDS: Doxycycline 100 MG CAPSULE PO (22:57)
== END 2019-07-09 23:02 | disposition home or self-care (01) ==
LOC: ED 22:54
PROVIDERS: Emergency Provider Emergency Medicine
DX: O86.00 Infection of obstetric surgical wound, unspecified (principal); O99.335 Smoking (tobacco) complicating the puerperium; F17.200 Nicotine dependence, unspecified, uncomplicated; Z88.0 Allergy status to penicillin
CPT/HCPCS: 99283

== ENCOUNTER 2019-07-24 15:52 | Emergency (ER) | payer MEDICAID, SELFPAY ==
[2019-07-24 15:54] VITALS: BP 125/84; PULSE 70; PULSE 79; RESP 18; TEMP 36.9; O2SAT 97; O2SAT 98; BMI 36.0
--- NOTE | 2019-07-24 17:43 | CT_ITS ---
STUDY: CT ABDOMEN AND PELVIS WITH CONTRAST REASON FOR EXAM: Female, 23 years old. LOWER ABD PAIN AND LUMPS NEAR SITE, RECENTLY TREATED FOR INFECTION ON 07-09-19 RADIATION DOSAGE (If Supplied By Facility): CTDIvol = ( 17.43 ) mGy, DLP = ( 1110.59 ) mGycm TECHNIQUE: Transaxial images were obtained from the dome of the diaphragm to the symphysis pubis without oral contrast. IV 100mL Isovue-300 was administered. Sagittal and coronal images were reconstructed. Individualized dose optimization techniques were used for this CT. COMPARISON: None. FINDINGS: The visualized lung bases are unremarkable. The visualized portions of the heart are within normal limits. Normal liver. Normal gallbladder and extrahepatic biliary system. There is mild splenomegaly. Normal pancreas. Normal bilateral adrenal glands. There is a nonobstructing 3 mm calculus of the right kidney. There is a nonobstructing linear 2 mm calculus of the left kidney. Normal visualized stomach. Normal small intestine. There is mild colonic diverticulosis. The appendix is visualized and appears normal. Normal abdominal aorta. Normal inferior vena cava. Normal retroperitoneum. Normal urinary bladder. Uterus is bulky in size. Bilateral adnexal metallic radiopacities are seen which may represent tubal ligation clips. There is a small umbilical hernia containing fat. There is mild induration of the subcutaneous fat of the mid anterior pelvic region. There is no evidence of abscess or other loculated fluid collection, or of soft tissue air. Normal osseous structures. CT/Abdomen/Pelvis W IV Cont ONLY IMPRESSION: Nonobstructing bilateral nephrolithiasis. Mild colonic diverticulosis with no evidence of associated diverticulitis. Uterus is bulky in size. There are bilateral adnexal metallic radiopacities which may represent tubal ligation clips. Small fat-containing umbilical hernia. Mild induration of the subcutaneous fat of the mid anterior pelvic region. There is no evidence of abscess or other loculated fluid collection, or of soft tissue air. There is mild splenomegaly. Electronically Signed: Agustin Reyes MD at 19:39 EST , Service support ,
--- NOTE | 2019-07-24 18:03 | ED.DCSUM_ITS ---
History of Present Illness Chief Complaint: Wound Check Informant: Patient - Abdominal Pain/Flank Pain Onset: Days Context: Gradual Onset Timing: Continuous Quality: Aching, Sharp Location: - - lower abdomen Worsened by: Nothing Relieved by: Nothing - Nausea/Vomiting/Emesis GI Symptom: Nausea Onset: Yesterday Narrative: Patient is a 23-year-old female that is 25 days status post presenting with pain in her lower abdomen at her incision site. Patient states for the past few days she is felt 2 hard nodules underneath her skin that are quite painful to palpation. She notes the pain radiates into her back. She did have an surgical site abscess that required treat with antibiotics. Patient completed a course of doxycycline that was then switched to Bactrim for this. She notes that seems to have improved. Her DISTILLERY WORKER is Dr. Martinez. Patient describes her pain as burning in nature and sharp. She denies any urinary symptoms but notes that since the she has had a pulling sensation whenever she urinates. She has had normal bowel movements. She denies any fever or chills. She an episode of nausea yesterday. No vomiting. No upper abdominal pain. Her DISTILLERY WORKER said she should come to the emergency room to be evaluated further. Past Medical History - Allergies and Home Meds Allergies/Adverse Reactions: Allergies Penicillins Allergy (Verified 07/24/19 15:53) Angioedema doxycycline Adverse Reaction (Verified 07/24/19 15:53) Chest tightness Primary Care Physician: Wolfgang Martinez MD [STAFF PHYSICIAN] - Past Medical History: None Surgical History: - - Lives: Spouse/ Significant Other Smoking Status: Current every day smoker Review of Systems General: Denies: Chills, Fever, Sweats Eyes: Denies: Visual changes - bilaterally, Diplopia ENT: Denies: Rhinorrhea, Sore throat Cardiovascular: Denies: Chest pain, Palpitations Respiratory: Denies: Dyspnea, Cough, Dyspnea on exertion Gastrointestinal: Reports: Abdominal pain, Nausea. Denies: Vomiting, Diarrhea, Melena, Hematochezia Genitourinary: Denies: Dysuria, Hematuria, Frequency Musculoskeletal: Denies: Back pain, Extremity Pain Skin: Reports: - - Pain at surgical incision site from c- section . Denies: Rash, Abscess, Wounds Neurological: Denies: Headache, Weakness, Numbness Physical Exam Vital Signs/Narrative: Vital Signs Temp Pulse Resp BP Pulse Ox 07/24/19 15:54 98.5 F 70 18 125/84 H 98 Inital Vital Signs reviewed: Yes General: Well nourished, Well developed, No Acute Distress Head: Normocephalic, Atraumatic Eyes: Perrl, EOMI ENT: Moist mucous membranes, No rhinorrhea Neck: Supple, Nontender Cardiovascular: Regular rate, Regular rhythm, No murmurs Respiratory: No distress, CTA bilaterally, Chest nontender Abdomen: Soft, Nondistended, Normal bowel sounds, Tender, - - Palpable nodule to the left of the lateral surgical incision from that is about 1 cm in diameter and tender to palpation. There is no associated fluctuance or overlying erythema. There is another 1 cm palpable, tender nodule underneath the right side of the incision. Incision itself looks to be healing appropriately.. Negative for: Guarding, Rebound tenderness Back: Nontender, Normal Inspection. Negative for: CVA tenderness Extremities: Nontender, No edema Skin: Normal color, No rash. Negative for: Rash Neurological: Alert, Oriented x3, Cranial nerves II-XII grossly intact, Normal Strength, Normal Sensation Psychological: Normal affect, Normal Mood Diagnostic/Tx/Re-eval Clinical Impression(s) from Imaging Studies Abdomen/Pelvis CT 07/24/19 17:43 IMPRESSION: Nonobstructing bilateral nephrolithiasis. Mild colonic diverticulosis with no evidence of associated diverticulitis. Uterus is bulky in size. There are bilateral adnexal metallic radiopacities which may represent tubal ligation clips. Small fat-containing umbilical hernia. Mild induration of the subcutaneous fat of the mid anterior pelvic region. There is no evidence of abscess or other loculated fluid collection, or of soft tissue air. There is mild splenomegaly. Electronically Signed: Agustin Reyes MD at 19:39 EST , Service support , Laboratory Data 07/24/19 07/24/19 07/24/19 18:01 18:03 18:03 WBC 9.9 RBC 4.72 Hgb 12.3 Hct 39.6 MCV 83.9 MCH 26.1 L MCHC 31.1 L RDW Std Deviation 48.1 H RDW Coeff of Liane 15.8 H Plt Count 480 H MPV 10.5 Immature Gran % (Auto) 0.400 Neut % (Auto) 52.9 Lymph % (Auto) 40.2 Reeves % (Auto) 4.6 Eos % (Auto) 1.4 Baso % (Auto) 0.5 Absolute Neuts (auto) 5.2 Absolute Lymphs (auto) 3.96 Nucleated RBC % 0 Sodium 141 Potassium 3.7 Chloride 108 H Carbon Dioxide 26.0 Anion Gap 7 BUN 8 Creatinine 0.75 Estim Creat Clear Calc 91.48 Est GFR (MDRD) Af Amer 122 Est GFR (MDRD) Non-Af 101 BUN/Creatinine Ratio 10.7 Glucose 79 Calcium 9.2 Total Bilirubin 0.20 AST 9 L ALT 15 Alkaline Phosphatase 81 Total Protein 8.0 Albumin 3.8 Globulin 4.2 Albumin/Globulin Ratio 0.9 Lipase 84 Urine Color Yellow Urine Clarity Sl. Cloudy Urine pH 6.0 Ur Specific [place] 1.020 Urine Protein 15 H Urine Glucose (UA) Normal Urine Ketones Negative Urine Occult Blood 25 H Urine Nitrite Negative Urine Bilirubin Negative Urine Urobilinogen Normal Ur Leukocyte Esterase 100 H Urine RBC 0-5 SEEN Urine WBC 10-25 SEEN Ur Squamous Epith Cells 10-25 SEEN Urine Bacteria 2+ Urine Mucus 0 SEEN - Medical Decision Making Patient is a 23-year-old female that is 25 days status post . She is having some new pain at her incision site and feels some bumps underneath the incision. She appears nontoxic in no acute distress. She did previously have an abscess at her incision site which has also healed. Lab work is normal. Her vital signs are normal. CT abdomen pelvis obtained to look for any abscess or other intra-abdominal process. This is all grossly negative. It is possible that this tenderness is where her deep sutures are or possibly some inflamed lymph nodes. Regardless I do feel that patient is stable for outpatient follow- up. I did touch base with Dr. Mendoza, on-call DISTILLERY WORKER to let her know of the patient's complaints and findings. She is agreeable with discharge and outpatient follow-up. Patient is counseled on signs and symptoms requiring return to the emergency room. Patient verbalizes agreement and understand this plan. Patient discharged home in stable and improved condition. ED Disposition - Plan for ED Patient: Disposition: Home or Assisted Living Diagnosis: Postoperative abdominal pain Instructions: POST OP WOUND CHECK, Pain Referrals: Wolfgang Martinez MD [STAFF PHYSICIAN] - Additional Instructions: Not have any signs of abscess or infection today. I suspect the bumps are normal postoperative pain and possibly the deep sutures that you are feeling. Please follow-up with your DISTILLERY WORKER. Return the emergency room if you develop any worsening symptoms. A urine culture is sent to rule out infection of the bladder however you will not be started on antibiotics at this time.
[2019-07-24] MEDS: 0.9% Normal Saline 1,000 ML 1000 ML IV (18:10)
[2019-07-24] MEDS: Ketorolac 15 MG/ML Vial IV (18:11)
[2019-07-24 18:29] LABS: Mucous, Urine 0 SEEN /hpf (<or=2+)
[2019-07-24 18:36] VITALS: BP 120/79; PULSE 45; RESP 16; O2SAT 98
[2019-07-24 18:46] LABS: Absolute Lymphocyte Count 3.96 X10^3/uL (0.83-4.51); Absolute Neutrophil Count 5.2 X10^3/uL (2.0-7.7); Basophil# 0.05 X10^3/uL; Basophil% 0.5 % (0-1); Eosinophil# 0.14 X10^3/uL; Eosinophils% 1.4 % (0-5); Hematocrit 39.6 % (37-47); Hemoglobin 12.3 g/dL (12.0-15.0); Lymphocyte # 3.96 X10^3/ul (4.0); Lymphocyte % 40.2 % (19-41); Mean Corp Hgb Conc 31.1 g/dL (32-36); Mean Corpuscular Hgb 26.1 pg (27.0-32.0); Mean Corpuscular Volume 83.9 fL (81-99); Mean Platelet Vol. 10.5 fl (6.2-12.0); Monocyte# 0.45 X10^3/uL; Monocyte% 4.6 % (0-10); NRBC Flagged by Analyzer 0 % (0-5); Neutrophil # 5.21 X10^3/uL (2.7-7.7); Neutrophil % 52.9 % (47-70); Platelet Count 480 K/mm3 (150-450); RBC Distribution Width CV 15.8 % (11.6-14.6); RBC Distribution Width SD 48.1 fl (35.1-43.9); Red Blood Count 4.72 M/mm3 (4.2-5.4); White Blood Count 9.9 K/mm3 (4.4-11.0)
[2019-07-24 18:57] LABS: ALB/GLOB Ratio 0.9 RATIO (0.9-2.4); AST(SGOT) 9 U/L (15-37); Alanine Aminotransfer ALT/SGPT 15 U/L (13-56); Albumin, Serum 3.8 g/dL (3.2-5.0); Alkaline Phosphatase 81 U/L (45-117); Anion Gap 7 (5-15); BUN 8 mg/dL (7-18); BUN/Creat Ratio 10.7 RATIO (10-20); Calcium,Total 9.2 mg/dL (8.5-10.1); Chloride 108 mmol/L (98-107); Creatinine, Serum 0.75 mg/dL (0.55-1.02); EST Glomerular Filtration Rate 101 mL/min (>60); Est Glom Filt Rate - Afr Amer 122 mL/min (>60); Estimated Creatinine Clearance 91.48 ml/min; Globulin 4.2 g/dL (2.2-4.2); Glucose 79 mg/dL (74-106); Lipase 84 U/L (73-393); Potassium 3.7 mmol/L (3.5-5.1); Sodium Level 141 mmol/L (136-145)
[2019-07-24 19:29] LABS: Color, Urine Yellow (Yellow); Glucose, Dipstick Normal (Normal); Ketone-Dipstick Negative (Negative); Leukocyte Esterase-Dipstick 100 /ul (Negative); Nitrite-Dipstick Negative (Negative); Occult Blood-Urine 25 /ul (Negative); Protein-Dipstick 15 mg/dl (Negative); Urine Bilirubin Dipstick Negative (Negative); Urine Clarity Sl. Cloudy (Clear); Urine Urobilinogen Normal (Normal)
[2019-07-24 19:47] LABS: White Blood Cells 10-25 SEEN /hpf (0-5)
[2019-07-24 19:48] LABS: Bacteria 2+ /hpf (None Seen); Red Blood Cells-Urine 0-5 SEEN /hpf (0-5); Squamous Epithelial Cells - UA 10-25 SEEN /hpf (5-10)
[2019-07-24 20:39] VITALS: BP 122/76; PULSE 71; RESP 16; O2SAT 97
== END 2019-07-24 20:40 | disposition home or self-care (01) ==
PROVIDERS: Emergency Provider Emergency Medicine
DX: O90.89 Other complications of the puerperium, not elsewhere classified (principal); G89.18 Other acute postprocedural pain; N20.0 Calculus of kidney; K57.30 Diverticulosis of large intestine without perforation or abscess without bleeding; K42.9 Umbilical hernia without obstruction or gangrene; R16.1 Splenomegaly, not elsewhere classified; O99.335 Smoking (tobacco) complicating the puerperium; F17.200 Nicotine dependence, unspecified, uncomplicated
CPT/HCPCS: 74177; 80053; 81001; 83690; 85025; 87077; 87086; 87088; 87186; 96361; 96374; 99283; J7030; Q9967; A4216

== ENCOUNTER 2019-07-26 19:00 | Emergency (ER) | payer MEDICAID, SELFPAY ==
[2019-07-26 19:01] VITALS: BP 130/82; PULSE 69; RESP 18; TEMP 36.9; O2SAT 98; BMI 32.9
--- NOTE | 2019-07-26 19:05 | EKG12_ITS ---
Test Reason : CP Blood Pressure : / mmHG Vent. Rate : 065 BPM Atrial Rate : 065 BPM P-R Int : 170 ms QRS Dur : 090 ms QT Int : 386 ms P-R-T Axes : 036 -03 004 degrees QTc Int : 401 ms Normal sinus rhythm Normal ECG Confirmed by MIGUEL ANGEL RIVERA, MADELYN ([id number]), restaurant expeditor RODO RIVERA ([id number]) on 07/27/2019 10:37:31 AM Referred By: NAUM REILLY Confirmed By:MADELYN MICHELLE MD
--- NOTE | 2019-07-26 19:12 | ED.RN ---
NO OLD EKGS IN MUSE
--- NOTE | 2019-07-26 19:27 | RAD_ITS ---
STUDY: X-RAY CHEST REASON FOR EXAM: Female, 23 years old. chest pain on and off for the past month since giving , recently intensifying TECHNIQUE: Single AP portable view of the chest. COMPARISON: None. FINDINGS: The lungs are clear and expanded. There is no demonstrated pleural abnormality. Normal size heart. Normal mediastinum and rebeca. Normal visualized pulmonary arteries. Normal visualized aortic arch and descending thoracic aorta. Normal visualized thoracic spine. Normal visualized ribs, clavicles, and shoulders. There is no demonstrated abnormality of the visualized soft tissue structures of the upper abdomen. RAD/Chest 1 View (Portable) IMPRESSION: Normal x-ray examination of the chest. Electronically Signed: Venkatesh Moy MD at 19:37 EST , Service support ,
[2019-07-26 19:30] LABS: Absolute Lymphocyte Count 3.57 X10^3/uL (0.83-4.51); Absolute Neutrophil Count 4.9 X10^3/uL (2.0-7.7); Basophil# 0.04 X10^3/uL; Basophil% 0.4 % (0-1); Eosinophil# 0.13 X10^3/uL; Eosinophils% 1.4 % (0-5); Hematocrit 37.6 % (37-47); Hemoglobin 11.6 g/dL (12.0-15.0); Lymphocyte # 3.57 X10^3/ul (4.0); Lymphocyte % 39.3 % (19-41); Mean Corp Hgb Conc 30.9 g/dL (32-36); Mean Corpuscular Hgb 25.5 pg (27.0-32.0); Mean Corpuscular Volume 82.6 fL (81-99); Mean Platelet Vol. 10.5 fl (6.2-12.0); Monocyte# 0.43 X10^3/uL; Monocyte% 4.7 % (0-10); NRBC Flagged by Analyzer 0 % (0-5); Platelet Count 391 K/mm3 (150-450); RBC Distribution Width CV 16.3 % (11.6-14.6); RBC Distribution Width SD 49.4 fl (35.1-43.9); Red Blood Count 4.55 M/mm3 (4.2-5.4); White Blood Count 9.1 K/mm3 (4.4-11.0)
[2019-07-26 19:52] LABS: Anion Gap 6 (5-15); BUN 7 mg/dL (7-18); BUN/Creat Ratio 9.4 RATIO (10-20); Calcium,Total 9.2 mg/dL (8.5-10.1); Chloride 112 mmol/L (98-107); Creatinine, Serum 0.75 mg/dL (0.55-1.02); EST Glomerular Filtration Rate 101 mL/min (>60); Est Glom Filt Rate - Afr Amer 122 mL/min (>60); Estimated Creatinine Clearance 91.48 ml/min; Glucose 91 mg/dL (74-106); Potassium 3.9 mmol/L (3.5-5.1); Sodium Level 143 mmol/L (136-145)
[2019-07-26 20:00] VITALS: BP 121/75; PULSE 61; RESP 15; O2SAT 98
[2019-07-26 20:26] LABS: D-Dimer Quantitative (DVT/PE) 0.81 FEU/ug/m (0.27-0.49)
--- NOTE | 2019-07-26 20:57 | CT_ITS ---
STUDY: CTA CHEST REASON FOR EXAM: Female, 23 years old. CHEST PAIN AND SOB,4 WEEKS POST- RADIATION DOSAGE (If Supplied By Facility): CTDIvol = ( 13.44 ) mGy, DLP = ( 490.53 ) mGycm TECHNIQUE: The examination was performed with the intravenous administration of IV 100mL [id number]-[id number]. Post-processing of the angiographic images was performed, with multiplanar reformation and 3D reconstruction. Individualized dose optimization techniques were used for this CT. COMPARISON: Portable chest x-ray 07/26/2019. CT abdomen pelvis 07/24/2019. FINDINGS: Normal enhancement of the main pulmonary artery and right and left pulmonary arteries. Normal enhancement of the bilateral peripheral pulmonary arteries. There is no demonstrated pulmonary embolism. Normal thoracic aorta and visualized great vessels. There is no demonstrated aortic dissection. Normal heart and pericardium. Normal mediastinum. Normal hilar regions. Normal visualized trachea and bronchi. The lungs are well expanded. Normal pulmonary parenchyma. Normal pleura. Normal chest wall structures. Normal osseous structures. Suspect mild splenomegaly. CT/CTA Chest W/WO Contrast IMPRESSION: Normal CTA chest examination, without a demonstrated pulmonary embolism or arterial dissection. Electronically Signed: Alisia Berry MD at 22:17 EST , Service support ,
[2019-07-26 22:19] VITALS: PULSE 50; RESP 14; O2SAT 97
--- NOTE | 2019-07-26 22:40 | ED.VISSUMM ---
- ER Visit Summary Date of Service: 07/26/19 Chief Complaint: Chest pain History of Present Illness: The patient is a 23 F with chest pain that started at 3 AM earlier today. Associated with some shortness of breath. No history of heart disease or PE. She gave 4 weeks ago. No fevers, cough, or other associated symptoms. Physical Examination: Afebrile and vital signs unremarkable. Blood pressure 130/82. No acute distress. Sitting, breathing, moving comfortably. Heart regular. Lungs clear. Extremities nontender with no edema. Skin appears normal. Test Results: EKG shows sinus rhythm at a rate of 65. No sign of ischemia or infarction pattern. Chest x-ray normal. Hemoglobin 11.6, BMP unremarkable. Troponin normal. D-dimer elevated. CTA was performed and showed no evidence of PE or dissection. Emergency Department Course and Treatment: Work-up is unremarkable. Nothing to suggest ACS, dissection, PE, pneumonia, or other cardiopulmonary pathology. Patient is appropriate for outpatient care. She may use [id number]-cer-cotpofz remedies like Tylenol for pain. Follow-up with her outpatient doctor. Return right away for any new or worsening issues. Treatment Plan: As above Disposition: Discharge Impression: 1. Chest pain atypical This note was generated with [employer] dictation software. It may contain incorrect words, spelling, and punctuation that were not noted in review of the chart prior to signing ED Disposition - Plan for ED Patient: Referrals: Care Physician,No Primary [Primary Care Provider] -
--- NOTE | 2019-07-26 22:42 | ED.DEP ---
ED Disposition - Plan for ED Patient: Instructions: CHEST PAIN, Uncertain Cause Additional Instructions: follow up with your doctor
== END 2019-07-26 22:52 | disposition home or self-care (01) ==
PROVIDERS: Emergency Provider Emergency Medicine
DX: O90.9 Complication of the puerperium, unspecified (principal); R07.89 Other chest pain; R06.02 Shortness of breath; O99.335 Smoking (tobacco) complicating the puerperium
CPT/HCPCS: 71045; 71275; 80048; 84484; 85025; 85379; 93005; 99284; Q9967; A4216